=== PATIENT | male | born 1955 | race African-American/Black ===

== ENCOUNTER 2019-03-03 18:36 | Emergency (ER) | payer MEDICAID ==
[~2019-03-03] VITALS: Ht 177.8 cm; Wt 77.0 kg
[~2019-03-03 18:36] MED LIST: ABILIFY5 MG PO; AMBIEN5 MG PO; AMLODIPINE10 MG PO; AMOXICILLIN500 MG PO; BACTRIM DS1 TAB PO; BENZTROPINE0.5 MG PO; BUDEPRION150 MG PO; CIPROFLOXACN500 MG PO; CYMBALTA60 MG PO; DOXEPIN HCL10 MG PO; FINASTERIDE5 MG PO; GABAPENTIN300 MG PO; HALDOL0.5 MG/TAB PO; HALOPERIDOL1 MG PO; LISINOP/HCTZ1 TA2 PO; LISINOP/HCTZ1 TAB PO; LORTAB 1010 MG PO; MAGNESIUM250 M1 PO; MELOXICAM15 MG PO; MIRTAZAPINE15 MG PO; MUCINEX600 MG PO; OMEPRAZOLE20 M2 PO; ONDANSETRON4 MG PO; POTASSIUM GLUC550 M1 PO; PROSCAR5 MG PO; RISPERDAL0.5 MG PO; SERTRALINE HCL50 MG PO; TAMSULOSIN0.4 MG PO; TRAMADOL HCL50 MG PO; ULTRAM50 M1 PO; VIAGRA50 MG PO; WELLBUTRIN150 M1 PO; ZOFRAN4 MG/TAB PO; ZOLOFT50 MG PO
[2019-03-03 19:09] LABS: HEMATOCRIT 29.5 % (39.0-50.0); HEMOGLOBIN 9.9 g/dl (14.0-18.0); IMMATURE GRANULOCYTES 0.3 % (0.0-5.0); MEAN CELL VOLUME 92.8 fL CALC (80.0-100.0); MEAN CORPUSCULAR HGB 31.1 pG CALC (26.0-32.0); MEAN CORPUSCULAR HGB CONC 33.6 g/L CALC (32.0-36.0); NEUT# 2.22 thou/uL (1.82-7.42); RED BLOOD COUNT 3.18 mill/uL (4.70-6.10); RED CELL DISTRI WIDTH 14.2 % (11.5-15.5)
[2019-03-03 19:22] LABS: ALBUMIN 3.4 g/dL (3.2-5.0); ALKALINE PHOSPHATASE 88 u/l (38-126); ANION GAP 12 (6-22 (CALC)); BUN 15 mg/dL (8-23); BUN/CREATININE RATIO 15 (12-20 (CALC)); CARBON DIOXIDE 21 mmol/l (22-30); CHLORIDE 112 mmol/l (95-108); ETHYL ALCOHOL 21 mg/dl (0-30); GFR > 60 ML/MIN (>=60 (CALC)); GFR FOR AFR.AMER. > 60 ML/MIN (>=60 (CALC)); POTASSIUM 3.7 mmol/l (3.5-5.1); SGOT/AST 33 u/l (19-48); SODIUM 141 mmol/l (137-146); TOTAL PROTEIN 5.9 g/dL (6.3-8.2)
[2019-03-03 19:24] LABS: BILIRUBIN, TOTAL 0.2 mg/dL (0.0-1.4)
[2019-03-03 20:00] LABS: URINE BILIRUBIN - DIPSTICK NEGATIVE (NEGATIVE); URINE BLOOD DIPSTICK NEGATIVE (NEGATIVE); URINE COLOR YELLOW; URINE GLUCOSE - DIPSTICK NEGATIVE (NEGATIVE); URINE KETONE NEGATIVE (NEGATIVE); URINE LEUK ESTERASE NEGATIVE (NEGATIVE); URINE NITRITE - DIPSTICK NEGATIVE (Negative); URINE PROTEIN - DIPSTICK 30 mg/dL (NEG-TRACE); URINE SPECIFIC GRAVITY >=1.030; URINE UROBILINOGEN - DIPSTICK 0.2 E.U./dL (0.2)
[2019-03-03 20:04] LABS: COCAINE POSITIVE (NEGATIVE); METHADONE NEGATIVE (NEGATIVE); TETRAHYDROCANNABIONOL NEGATIVE (NEGATIVE); URINE RBC 0-2 RBC/hpf (0-5); URINE WBC 0-2 WBC/hpf (0-5)
[2019-03-03 20:05] LABS: BARBITURATES NEGATIVE (NEGATIVE); OXCYCODONE NEGATIVE (NEGATIVE); TRICYLIC ANTIDEPRESSANTS NEGATIVE (NEGATIVE)
[2019-03-03 20:56] VITALS: BP 122/73
== END 2019-03-03 20:56 | disposition home or self-care (01) ==
LOC: ED 18:36
PROVIDERS: Emergency Medicine
DX: G40.909 Epilepsy, unspecified, not intractable, without status epilepticus (principal); F10.10 Alcohol abuse, uncomplicated; F17.200 Nicotine dependence, unspecified, uncomplicated

== ENCOUNTER 2019-05-17 12:53 | Emergency (ER) | payer MEDICAID ==
[~2019-05-17] VITALS: Ht 177.8 cm; Wt 70.0 kg
[2019-05-17 14:00] VITALS: BP 164/77
== END 2019-05-17 14:00 | disposition home or self-care (01) ==
LOC: ED 12:53
DX: S61.011A Laceration without foreign body of right thumb without damage to nail, initial encounter (principal); I10 Essential (primary) hypertension; F17.200 Nicotine dependence, unspecified, uncomplicated; W25.XXXA Contact with sharp glass, initial encounter; Y93.E9 Activity, other interior property and clothing maintenance

== ENCOUNTER 2021-05-22 16:04 | Observation (INO) | payer MEDICARE, MEDICAID ==
[~2021-05-22] VITALS: Ht 177.8 cm; Wt 89.0 kg
--- NOTE | 2021-05-22 16:10 | NUR ---
RECIEVED FROM EMS
[2021-05-22 17:13] LABS: HEMATOCRIT 23.7 % (39.0-50.0); MEAN CORPUSCULAR HGB 31.1 pG CALC (26.0-32.0); MEAN CORPUSCULAR HGB CONC 31.2 g/dL CAL (32.0-36.0); NEUT# 2.18 thou/uL (1.82-7.42); RED BLOOD COUNT 2.38 mill/uL (4.70-6.10); RED CELL DISTRI WIDTH 13.7 % (11.5-15.5)
[2021-05-22 17:14] LABS: HEMOGLOBIN 7.4 g/dl (14.0-18.0); MEAN CELL VOLUME 99.6 fL CALC (80.0-100.0)
[2021-05-22 17:27] LABS: ALBUMIN 3.3 g/dL (3.2-5.0); ALKALINE PHOSPHATASE 74 u/l (38-126); ANION GAP 10 (6-22 (CALC)); BILIRUBIN, TOTAL 0.4 mg/dL (0.0-1.4); BUN 18 mg/dL (8-23); BUN/CREATININE RATIO 21 (12-20 (CALC)); CARBON DIOXIDE 24 mmol/l (22-30); CHLORIDE 110 mmol/l (95-108); CREATININE 0.8 mg/dL (0.7-1.3); GFR > 60 ML/MIN (>=60 (CALC)); GFR FOR AFR.AMER. > 60 ML/MIN (>=60 (CALC)); POTASSIUM 3.5 mmol/l (3.5-5.1); SGOT/AST 28 u/l (19-48); SODIUM 141 mmol/l (137-146); TOTAL PROTEIN 6.2 g/dL (6.3-8.2)
[2021-05-22 17:39] LABS: MYOGLOBIN 32 ng/mL (0 - 121)
[2021-05-22 18:34] LABS: URINE BILIRUBIN - DIPSTICK NEGATIVE (NEGATIVE); URINE BLOOD DIPSTICK NEGATIVE (NEGATIVE); URINE COLOR YELLOW; URINE GLUCOSE - DIPSTICK NEGATIVE (NEGATIVE); URINE KETONE NEGATIVE (NEGATIVE); URINE LEUK ESTERASE NEGATIVE (NEGATIVE); URINE PH 6.5 (4.5-8.0); URINE PROTEIN - DIPSTICK 100 mg/dL (NEG-TRACE); URINE SPECIFIC GRAVITY >=1.030; URINE UROBILINOGEN - DIPSTICK 0.2 E.U./dL (0.2)
[2021-05-22 18:37] LABS: URINE NITRITE - DIPSTICK NEGATIVE (Negative)
[2021-05-22 18:42] LABS: URINE RBC 0-2 RBC/hpf (0-5); URINE WBC 0-2 WBC/hpf (0-5)
--- NOTE | 2021-05-22 18:47 | NUR ---
Reassessment of patient completed. No distress noted.
--- NOTE | 2021-05-22 20:16 | NUR ---
IST ATTEMPT TO GIVE REPORT
[2021-05-22 20:50] VITALS: BP 129/98
--- NOTE | 2021-05-22 21:10 | NUR ---
Transfer Information Transferred To: [facility] Report Given to: MARCO ANTONIO COX Transported by: N [facility] N Rec. Hosp[facility] Transport Serv. N Air N Other Transported with: Y Nurse N Transporter Y Patent IV Y O2 N Morning Nanny
--- NOTE | 2021-05-22 21:45 | NUR ---
PATIENT ADMITTED FROM ER VIA WHELLCHAIR WITH ER STAFF IN ATTENDANCE. PATIENT TRANSFERRED TO THE BED. PATIENT WITH O2 VIA NASAL CANNULA IN PLACE-O2 SAT IS 99-100%. IV SITE TO LEFT FOREARM-#18 GAUGE WITH GOOD BLOOD RETURN. TELE MONITOR IN PLACE. PATIENT IS ALERT AND ORIENTED TO PERSON AND PLACE. LUNGS WITH CRACKLES IN THE BASES. PATIENT IS SOB WITH MINIMAL EXHERSION. STATES THAT HE HAD BM TODAY. NO DIFFICULTY WITH URINATION. NO PERIPHERAL EDEMA NOTED. PULSES ARE PALPABLE. PROVIDED WITH TURKEY HEALTHY CHOICE MEAL AND SODA. APPETITE IS GOOD. ORIENTED TO ROOM AND SURROUNDINGS. INSTRUCTED ON USE OF NURSE CALL LIGHT SYSTEM, TV REMOTE AND PHONE. SAFETY PRECATUIONS REINFORCED. CONSENT FOR BLOOD TRANSFUSION SIGNED. CALL LIGHT IN REACH. WILL CONT TO MONIOR.
[2021-05-22 21:59] VITALS: BP 139/102
--- NOTE | 2021-05-22 22:12 | NUR ---
PATIENT RESTING IN BED-UP TO THE BR TO VOID. BACK TO BED. 1ST UNIT OF PRBC'S HUNG AND INFUSING VIA LEFT FOREARM SITE. SITE IS HEALTHY WITH GOOD BLOOD RETURN PRIOR TO STARTING BLOOD. UNIT #[id number]. PATIENT INSTRUCTED REGUARDING POSSIBLE ADVERSE REACTIONS INCLUDING FEVER, CHILLS, HEADACHE, BACK ACHE. PATIENT INSTRUCTED TO CALL IF ANY OF THESES SX SHOULD APPEAR. PATIENT WITH O2 VIA NASAL CANNULA IN PLACE. SOB WITH EXHERSION. NON-PRODUCTIVE COUGH NOTED. PATIENT C/O FEELING CONGESTED LAST COUPLE OF DAYS. MONITORING PATIENT AT BEDSIDE.
[2021-05-22 22:26] VITALS: BP 128/82
--- NOTE | 2021-05-22 22:50 | NUR ---
PATIENT RESTING IN BED-SPOKE TO DR. NEGRITO KLINE PATIENT BNP, C-XAY AND CRACKLES IN HIS LUNGS. MEDICATED WITH LASIX 40MG IVP ORDERED. 1ST UNIT OF PRBC'S INFUSING ORDERED . URINAL AT BEDSIDE. CALL LIGHT IN REACH. WILL CONT TO MONITOR.
[2021-05-22 23:11] VITALS: BP 141/105
[2021-05-23] VITALS (11 sets, daily range): BP systolic 127–144; BP diastolic 90–108
--- NOTE | 2021-05-23 01:15 | NUR ---
PATIENT RESTING IN BED-1ST UNIT OF PRBC'S FINISHED WITHOUT ANY ADVERSE REACTION. PATIENT WITHOUT ANY COMPLAINTS. FREQUENT VOIDING AFTER RECIEVING LASIX IVP. CALL LIGHT IN REACH. WILL CONT TO MONITOR.
--- NOTE | 2021-05-23 01:59 | NUR ---
PATIENT RESTING IN BED-SECOND UNITS OF PRBC'S HUNG-UNIT#[id number] VIA LEFT FOREARM IV SITE. SITE REMAINS HEALTHY AT THIS TIME. TELE MONITOR IN PLACE. VOIDING QS IN URINAL. REINFORCED TEACHING REGUARDING POSSIBLE ADVERSE REACTIONS INCLUDING FEVER, CHILLS, HEADACHE OR BACK PAIN. MONITORING PATIENT AT BEDSIDE. WILL CONT TO MONITOR.
--- NOTE | 2021-05-23 05:00 | NUR ---
PATIENT RESTING IN BED- SECOND UNIT OF PRABC'S COMPLETED WITHOUT ANY ADVERSE REACTIONS. TELE MONITOR IN PLACE WITH LAST READING OF SR-91. CONT TO VOID CLEAR YELLOW URINE IN URINAL. CALL LIGHT IN REACH.WILL CONT TO MONITOR
--- NOTE | 2021-05-23 05:10 | NUR ---
PATIENT RESTING IN BED-2ND UNITS OF PRBC'S FINISHED WITHOUT ANY ADVERSEE REACTIONS. CONT TO VOID CLEAR YELLOW URINE. IV SITE TO RIGHT WRIST REMAINS HEALTHY AT THIS TIME. CALL LIGHT IN REACH. WILL CONT TO MONITOR.
[2021-05-23 06:26] LABS: ANION GAP 12 (6-22 (CALC)); BUN 17 mg/dL (8-23); BUN/CREATININE RATIO 17 (12-20 (CALC)); CARBON DIOXIDE 25 mmol/l (22-30); CHLORIDE 106 mmol/l (95-108); GFR > 60 ML/MIN (>=60 (CALC)); GFR FOR AFR.AMER. > 60 ML/MIN (>=60 (CALC)); POTASSIUM 4.2 mmol/l (3.5-5.1); SODIUM 138 mmol/l (137-146)
[2021-05-23 06:49] LABS: MEAN CORPUSCULAR HGB 30.4 pG CALC (26.0-32.0); MEAN CORPUSCULAR HGB CONC 32.8 g/dL CAL (32.0-36.0); RED CELL DISTRI WIDTH 14.8 % (11.5-15.5)
[2021-05-23 06:50] LABS: HEMATOCRIT 46.4 % (39.0-50.0); HEMOGLOBIN 15.2 g/dl (14.0-18.0); MEAN CELL VOLUME 92.8 fL CALC (80.0-100.0)
--- NOTE | 2021-05-23 07:00 | NUR ---
REPORT REC FROM Evie JOHNS RN
--- NOTE | 2021-05-23 07:18 | NUR ---
PT CONSENTED TO RECEIVING PNEUMONIA VACCINE. PT HAD PPSV23 08/02/2020, SO PCV13 DUE 08/03/2021... NOT A CANDIDATE AT THIS TIME.
--- NOTE | 2021-05-23 07:25 | NUR ---
PT SLEEPING UPON ENTERING ROOM. AWAKENED TO COMPLETE ASSESSMENT. A&O X4. EXERTIONAL SOB NOTED WITH ACTIVITY, PT REPORTS THE ONSET OF SYMPTOMS BEGAN APPROXIMATELY 2-3 DAYS AGO. O2 VIA NC @2L, O2 CURRENTLY 96%. CRACKLES HEARD UPON AUSCULTATION. PT DENIES ANY PAIN AT THIS TIME. QUALIFICATIONS EXAMINER IN PLACE, CURRENTLY SR WITH A RATE OF 89 BPM. #18G LFA HEALTHY AND PATENT; EMS SITE. ACTIVE BOWEL SOUNDS X4 QUADRANTS. ASSESSMENT COMPLETED. DISCUSSED POC. CALL LIGHT WITHIN REACH, PT INSTRUCTED TO CALL IF SOB WORSENS, PT VERBALIZED UNDERSTANDING.
--- NOTE | 2021-05-23 09:02 | NUR ---
DR MAHAN AND Lucero TERRELL APRN AT BEDSIDE DISCUSSING POC
--- NOTE | 2021-05-23 11:22 | NUR ---
PT SLEEPING IN BED. NO DISTRESS NOTED. CALL LIGHT WITHIN REACH.
[2021-05-23] MEDS ORDERED: LASIX 20 MG TAB20 MG PO (11:26)
--- NOTE | 2021-05-23 15:40 | NUR ---
RECIEVED REPORT FROM BROOKE GOMEZ. PT TO BE D/C. PT REQUEST TO CALL SOCIAL SECURITY BEFORE BEING DC HOME. RESPIRATIONS REMAINS EVEN AND UNLABORED ON ROOM AIR. TELE MONITORING IN PLACE. PT DENIES OF ANY ADDITIONAL NEEDS AT THIS TIME. WILL CONTINUE TO MONITOR
--- NOTE | 2021-05-23 16:40 | NUR ---
PT EDUCATED ON DC INSTRUCTIONS AND NEW MEDICATION LASIX. PT VERBALIZED UNDERSTANDING. IV AND TELE MONITORING REMOVED BY PT. #20G EMS WITH CATH INTACT ON TABLE. ER NOTIFIED. [facility] TO PAY FOR TAXI RIDE HOME. WILL CONTINUE TO MONITOR.
--- NOTE | 2021-05-23 17:45 | NUR ---
Discharge instructions given. Patient verbalizes understanding of same. Discharged in stable condition via Wheelchair to Home with staff. All belongings sent with pt. PT DC HOME IN STABLE CONDITION VIA WHEELCHAIR ACCOMPAINED BY MARJAN PUGA. PT REMINDED OF DC INTSTRUCTIONS. DR EDUARD MILAN AND JASON PROVIDED. PT DC WITH ALL DC INSTRUCTIONS AND PERSONAL BELONGING. TAXI PROVIDED BY [facility]
== END 2021-05-23 17:30 | disposition home or self-care (01) ==
LOC: ED 16:04 → MS2 19:14
PROVIDERS: Emergency Medicine; ADMIT Hospitalist; ATTEND Hospitalist
PROC: 30233N1 Transfusion of Nonautologous Red Blood Cells into Peripheral Vein, Percutaneous Approach (ICD-10-PCS; principal; 2021-05-22)
PROC: 30233N1 Transfusion of Nonautologous Red Blood Cells into Peripheral Vein, Percutaneous Approach (ICD-10-PCS; 2021-05-23)
DX: D64.9 Anemia, unspecified (principal); I11.0 Hypertensive heart disease with heart failure; I50.9 Heart failure, unspecified; F14.10 Cocaine abuse, uncomplicated; F12.10 Cannabis abuse, uncomplicated; F10.10 Alcohol abuse, uncomplicated; E78.5 Hyperlipidemia, unspecified; F41.9 Anxiety disorder, unspecified; G40.909 Epilepsy, unspecified, not intractable, without status epilepticus; F17.210 Nicotine dependence, cigarettes, uncomplicated; Z86.73 Personal history of transient ischemic attack (TIA), and cerebral infarction without residual deficits; Z20.822 Contact with and (suspected) exposure to COVID-19
CPT/HCPCS: G0378; P9016

== ENCOUNTER 2021-06-28 06:15 | Emergency (ER) | payer MEDICARE, MEDICAID ==
[~2021-06-28] VITALS: Ht 177.8 cm; Wt 72.0 kg
[~2021-06-28 06:15] MED LIST changes: +LASIX 20 MG TAB20 MG PO
[2021-06-28 06:55] LABS: HEMATOCRIT 45.1 % (39.0-50.0); HEMOGLOBIN 14.3 g/dl (14.0-18.0); IMMATURE GRANULOCYTES 0.3 % (0.0-5.0); MEAN CELL VOLUME 95.8 fL CALC (80.0-100.0); MEAN CORPUSCULAR HGB 30.4 pG CALC (26.0-32.0); MEAN CORPUSCULAR HGB CONC 31.7 g/dL CAL (32.0-36.0); NEUT# 5.01 thou/uL (1.82-7.42); RED BLOOD COUNT 4.71 mill/uL (4.70-6.10); RED CELL DISTRI WIDTH 14.4 % (11.5-15.5)
[2021-06-28 06:55] LABS: URINE BILIRUBIN - DIPSTICK NEGATIVE (NEGATIVE); URINE BLOOD DIPSTICK TRACE-INTACT (NEGATIVE); URINE COLOR YELLOW; URINE GLUCOSE - DIPSTICK NEGATIVE (NEGATIVE); URINE KETONE NEGATIVE (NEGATIVE); URINE LEUK ESTERASE NEGATIVE (NEGATIVE); URINE PROTEIN - DIPSTICK TRACE mg/dL (NEG-TRACE); URINE SPECIFIC GRAVITY 1.015; URINE UROBILINOGEN - DIPSTICK 0.2 E.U./dL (0.2)
[2021-06-28 06:59] LABS: URINE NITRITE - DIPSTICK NEGATIVE (Negative)
[2021-06-28 07:13] LABS: ALBUMIN 3.8 g/dL (3.2-5.0); ALKALINE PHOSPHATASE 111 u/l (38-126); ANION GAP 13 (6-22 (CALC)); BILIRUBIN, TOTAL 0.4 mg/dL (0.0-1.4); BUN 18 mg/dL (8-23); BUN/CREATININE RATIO 18 (12-20 (CALC)); CARBON DIOXIDE 25 mmol/l (22-30); CHLORIDE 107 mmol/l (95-108); GFR > 60 ML/MIN (>=60 (CALC)); GFR FOR AFR.AMER. > 60 ML/MIN (>=60 (CALC)); MAGNESIUM 1.6 mg/dL (1.6-2.3); POTASSIUM 4.1 mmol/l (3.5-5.1); SGOT/AST 33 u/l (19-48); SODIUM 141 mmol/l (137-146); TOTAL PROTEIN 7.3 g/dL (6.3-8.2)
[2021-06-28 07:14] LABS: D-DIMER 1.6 mg/L (0.19-0.60)
[2021-06-28 07:25] LABS: MYOGLOBIN 32 ng/mL (0 - 121)
[2021-06-28 07:50] LABS: ACT PARTIAL THROMBO TIME 23.9 SECONDS (20.0-32.5); PROTHROMBIN TIME 10.4 SECONDS (9.0-12.5)
[2021-06-28 09:34] VITALS: BP 134/94
[2021-06-28] MEDS ORDERED: ZPAK PO (09:38)
== END 2021-06-28 09:36 | disposition home or self-care (01) ==
LOC: ED 06:15
PROVIDERS: Family Medicine
DX: I50.9 Heart failure, unspecified (principal); F14.10 Cocaine abuse, uncomplicated; Z86.73 Personal history of transient ischemic attack (TIA), and cerebral infarction without residual deficits; Z87.891 Personal history of nicotine dependence; Z20.822 Contact with and (suspected) exposure to COVID-19
CPT/HCPCS: Q9967

== ENCOUNTER 2021-08-21 09:30 | Observation (INO) | payer MEDICARE, MEDICAID ==
[~2021-08-21] VITALS: Ht 177.8 cm; Wt 64.5 kg
[~2021-08-21 09:30] MED LIST changes: +ZPAK PO
--- NOTE | 2021-08-21 09:30 | NUR ---
PATIENT TO ROOM VIA EMS AND PHYSICIAN AT BEDSIDE FOR EVAL
[2021-08-21 10:05] LABS: GFR > 60 ML/MIN (>=60 (CALC)); GFR FOR AFR.AMER. > 60 ML/MIN (>=60 (CALC))
[2021-08-21 10:12] LABS: HEMATOCRIT 42.4 % (39.0-50.0); HEMOGLOBIN 14.2 g/dl (14.0-18.0); IMMATURE GRANULOCYTES 0.3 % (0.0-5.0); MEAN CELL VOLUME 92.4 fL CALC (80.0-100.0); MEAN CORPUSCULAR HGB 30.9 pG CALC (26.0-32.0); MEAN CORPUSCULAR HGB CONC 33.5 g/dL CAL (32.0-36.0); NEUT# 4.25 thou/uL (1.82-7.42); RED BLOOD COUNT 4.59 mill/uL (4.70-6.10); RED CELL DISTRI WIDTH 14.6 % (11.5-15.5)
[2021-08-21 10:25] LABS: URINE BILIRUBIN - DIPSTICK NEGATIVE (NEGATIVE); URINE BLOOD DIPSTICK TRACE-INTACT (NEGATIVE); URINE COLOR YELLOW; URINE GLUCOSE - DIPSTICK NEGATIVE (NEGATIVE); URINE KETONE NEGATIVE (NEGATIVE); URINE LEUK ESTERASE NEGATIVE (NEGATIVE); URINE PROTEIN - DIPSTICK 100 mg/dL (NEG-TRACE); URINE UROBILINOGEN - DIPSTICK 0.2 E.U./dL (0.2)
[2021-08-21 10:26] LABS: URINE EPITHELIAL CELLS FEW EPI/hpf (0-FEW); URINE MUCUS MODERATE hpf (NONE-FEW); URINE NITRITE - DIPSTICK NEGATIVE (Negative); URINE RBC 0-2 RBC/hpf (0-5)
--- NOTE | 2021-08-21 10:30 | NUR ---
PT SITTING UP IN BED. RA SATS 94%.
[2021-08-21 10:37] LABS: ALBUMIN 3.8 g/dL (3.2-5.0); ALKALINE PHOSPHATASE 93 u/l (38-126); ANION GAP 14 (6-22 (CALC)); BUN 19 mg/dL (8-23); BUN/CREATININE RATIO 22 (12-20 (CALC)); CARBON DIOXIDE 23 mmol/l (22-30); CHLORIDE 107 mmol/l (95-108); CREATININE 0.9 mg/dL (0.7-1.3); GFR > 60 ML/MIN (>=60 (CALC)); GFR FOR AFR.AMER. > 60 ML/MIN (>=60 (CALC)); POTASSIUM 4.5 mmol/l (3.5-5.1); SGOT/AST 33 u/l (19-48); SODIUM 140 mmol/l (137-146); TOTAL PROTEIN 7.2 g/dL (6.3-8.2)
--- NOTE | 2021-08-21 11:45 | NUR ---
MD AT BEDSIDE DISCUSSING CLINICAL RESULTS W/PT AND NEED TO ADMIT FOR OBSERVATIONS. PT VOICED UNDERSTANDING.
[2021-08-21] MEDS ORDERED: VITAMIN B-12500 MCG PO (12:47)
[2021-08-21] MEDS ORDERED: NORVASC PO (12:47)
[2021-08-21] MEDS ORDERED: HM VITAMIN D325 MCG PO (12:47)
[2021-08-21] MEDS ORDERED: K-TABS10 MEQ PO (12:48)
--- NOTE | 2021-08-21 13:00 | NUR ---
MEAL TRAY PROVIDED. PT ATE 100% FEEDS SELF.
--- NOTE | 2021-08-21 14:13 | NUR ---
REPORT CALLED TO BROOKE HAWTHORNE, ON [employer]. ADVISED OF ALL EVENTS ATTACHMENTS TEST.
--- NOTE | 2021-08-21 14:26 | NUR ---
PT TO MEDSURG VIA WC ON TELE, IV SITE HEALTHY. VSS.
--- NOTE | 2021-08-21 14:40 | NUR ---
REPORT RECEIVED FROM CANDICE IN ED, PT ARRIVED ON UNIT APPROX [phone] TRANSPORTED BY ED STAFF. SETTLED IN BED, ALERT AND ORIENTED X 3, HAVING EPISODES OF HACKING NON-PRODUCTIVE COUGH AT THIS TIME, HYPERVENTILATING, SOB WITH AND WITHOUT EXERTION. REPORTS HIS DIURETIC (LASI) HAS BEEN FINISHED FOR A FEW DAYS NOW AND HE HASNT TAKEN ANY FOR THE LAST 3 DAYS, C/O LEFT SIDE PAIN ON COUGHING. USES CANE BUT AMBULATED TO BR INDEPENDENTLY, ADVISED TO CALL FOR ASSIST NEEDED HE IS VERY SOB. ORIENTED TO ROOM AND CALL CORTEZ, WILL CONTINUE TO MONITOR.
[2021-08-21 16:23] VITALS: BP 131/94
--- NOTE | 2021-08-21 17:43 | NUR ---
CONDITION MUCH IMPROVED AT THIS TIME, BREATHING EVEN AND NON-LABORED, SITTING UP AT BEDSIDE HAVING MEAL.
[2021-08-21 20:00] VITALS: BP 123/80
--- NOTE | 2021-08-21 20:00 | NUR ---
PATIENT RESTING IN BED AT THIS TIME-AWAKE ALERT AND ORIENTEDX3. PATIENT WITH TELE MONITOR IN PLACE-LAST READING WAS SR-83 WITH PAC'S. SALINE LOCK TO LAC INTACT AND HEALTHY AT THIS TIME. PATIENT VOIDING QS CLEAR YELLOW URINE IN URINAL. INSTRUCTED TO USE URINAL FOR ACCURATE I&O. VERBALIZES UNDERSTANDING. PATIENT C/O BACK PAIN-04/17, STATES THATHE FELL LAST WEEK. MEDICATED WITH TYLENOL 650MG PO FOR PAIN. SAFETY PRECAUTIONS REINFORCED. CALL LIGHT IN REACH. WILL CONT TO MONITOR.
[2021-08-22] VITALS: BP 109/76
--- NOTE | 2021-08-22 | NUR ---
PATIENT RESTING IN BED POSITIONED ON LEFT SIDE. EYES CLOSED AND RESPS ARE EVEN AND UNLABORED. TELE MONITOR IN PLACE. CALL LIGHT IN REACH. WILL CONT TO MONITOR.
[2021-08-22 04:00] VITALS: BP 113/81
--- NOTE | 2021-08-22 04:26 | NUR ---
PATIENT APPEARS SLEEPING AT THIS TIME-EYES ARE CLOSED AND RESPS ARE EVEN AND UNLABORED. TELE MONITOR IN PLACE. CALL LIGHT IN REACH. WILL CONT TO MONITOR.
[2021-08-22 06:03] LABS: HEMATOCRIT 39.4 % (39.0-50.0); HEMOGLOBIN 13.3 g/dl (14.0-18.0); MEAN CELL VOLUME 91.4 fL CALC (80.0-100.0); MEAN CORPUSCULAR HGB 30.9 pG CALC (26.0-32.0); MEAN CORPUSCULAR HGB CONC 33.8 g/dL CAL (32.0-36.0); RED BLOOD COUNT 4.31 mill/uL (4.70-6.10); RED CELL DISTRI WIDTH 14.6 % (11.5-15.5)
[2021-08-22 06:22] LABS: ANION GAP 11 (6-22 (CALC)); BUN 18 mg/dL (8-23); BUN/CREATININE RATIO 20 (12-20 (CALC)); CALCULATED LDLCHOLESTEROL 127 mg/dL (62-129 (CALC)); CARBON DIOXIDE 27 mmol/l (22-30); CHLORIDE 104 mmol/l (95-108); CREATININE 0.9 mg/dL (0.7-1.3); GFR > 60 ML/MIN (>=60 (CALC)); GFR FOR AFR.AMER. > 60 ML/MIN (>=60 (CALC)); HDL CHOLESTEROL 36 mg/dL (>=40); MAGNESIUM 1.7 mg/dL (1.6-2.3); POTASSIUM 3.6 mmol/l (3.5-5.1); SODIUM 139 mmol/l (137-146); TOTAL CHOLESTEROL 181 mg/dl (0-199); TOTAL TRIGLYCERIDES 89 mg/dl (30-149); VLDL CHOLESTROL 18 mg/dl (4-45 (CALC))
--- NOTE | 2021-08-22 07:00 | NUR ---
RECIEVED REPORT FROM BROOKE BERNARD
[2021-08-22 08:08] VITALS: BP 114/83
--- NOTE | 2021-08-22 08:08 | NUR ---
PT RESTING IN SEMI FOWLERS POSITION. PT IS A/O X3. ASSESSMENT AND VITALS COMPLETED. BP 114/83, HR 89, O2 100% ON 2L NC. RESPIRATIONS AER EVEN AND UNLABORED WITH NO DISTRESS NOTED. LUNG SOUNDS ARE CLEAR. HEART RHYTHM NORMAL WITH TELE IN PLACE. BOWEL SOUNDS ARE ACTIVE. #18G LAC FLUSHED, SITE REMAINS HEALTHY AND PATENT. SKIN INTACT. PT COMPLAINS OF 8/10 BACK PAIN. PT TO BE MEDICATED WITH TYLENOL. PT DENIES OF ANY ADDITIONAL PAINS OR DISCOMFORTS. ALL SAFETY PRECAUTIONS ARE IN PLACE WITH CALL LIGHT IN REACH. WILL CONTINUE TO MONITOR.
--- NOTE | 2021-08-22 09:09 | NUR ---
DR CHARLTON AT BEDSIDE
--- NOTE | 2021-08-22 09:14 | NUR ---
DR CHARLTON AT BEDSIDE
--- NOTE | 2021-08-22 09:37 | NUR ---
WALK TEST COMPLETED. 99% ON RESTING ON ROOM AIR. 97-99% WHILE AMBULATING. RESPIRATIONS REMAINS EVEN AND UNLABORED. PT CONTINUES TO STATE HE FEELS SOB. PT EDUCATED ON BREATHING TECHNIQUES. O2 98% ON ROOM AIR WHILE RESTING.
[2021-08-22 10:46] VITALS: BP 110/80
[2021-08-22] MEDS ORDERED: VENTOLIN HFA108 MCG IN (11:08)
[2021-08-22] MEDS ORDERED: ZYRTEC10 MG PO (11:09)
[2021-08-22] MEDS ORDERED: MEDDOSEPAK PO (11:09)
[2021-08-22] MEDS ORDERED: FLONASE AL50 MCG/ACT (11:10)
[2021-08-22] MEDS ORDERED: NORVASC PO (11:13)
[2021-08-22] MEDS ORDERED: HM VITAMIN D325 MCG PO (11:13)
[2021-08-22] MEDS ORDERED: LASIX 20 MG TAB20 MG PO (11:13)
[2021-08-22] MEDS ORDERED: VITAMIN B-12500 MCG PO (11:13)
[2021-08-22] MEDS ORDERED: K-TABS10 MEQ PO (11:13)
--- NOTE | 2021-08-22 12:08 | NUR ---
PT RESTING IN SEMI FOWLERS POSITION. RESPIRATIONS ARE EVEN AND UNLABORED ON ROOM AIR. #18G LAC REMAINS IN PLACE. TELE MONITORING IN PLACE. PT INFORMED OF DC. PT DENIES OF ANY ADDITONAL NEEDS AT THIS TIME. ALL SAFETY PRECAUTIONS ARE IN PLACE WITH CALL LIGHT IN REACH. WILL CONTINUE TO MONITOR
--- NOTE | 2021-08-22 13:16 | NUR ---
PT EDUCATED ON DC INSTRUCTIONS AND NEW MEDICATIONS. IV REMOVED WITH CATH STILL INTACT. TELLE REMOVED, ER INFORMED. PT VERBALZIED UNDERSTANDING. TAXI TO BE CALLED.
--- NOTE | 2021-08-22 13:43 | NUR ---
Discharge instructions given. Patient verbalizes understanding of same. Discharged in stable condition via Wheelchair to Home with staff. All belongings sent with pt. PT DC HOME VIA TAXI PROVIDED BY [facility] IN STABLE CONDITON WITH ALL DC INSTRUCTIONS AND PERSONAL BELONGINGS.
== END 2021-08-22 13:43 | disposition home or self-care (01) ==
LOC: ED 09:30 → ED-I 11:27 → ED 11:40 → MS2 11:41
PROVIDERS: Family Medicine; Nurse Practitioner; ADMIT Internal Medicine; ATTEND Internal Medicine
DX: I11.0 Hypertensive heart disease with heart failure (principal); I50.9 Heart failure, unspecified; J06.9 Acute upper respiratory infection, unspecified; F14.10 Cocaine abuse, uncomplicated; F10.10 Alcohol abuse, uncomplicated; E78.5 Hyperlipidemia, unspecified; E87.2 Acidosis; F41.9 Anxiety disorder, unspecified; T50.1X6A Underdosing of loop [high-ceiling] diuretics, initial encounter; F17.200 Nicotine dependence, unspecified, uncomplicated; Z86.73 Personal history of transient ischemic attack (TIA), and cerebral infarction without residual deficits; Z91.128 Patient's intentional underdosing of medication regimen for other reason; Z20.822 Contact with and (suspected) exposure to COVID-19
CPT/HCPCS: J1650; Q9967

== ENCOUNTER 2021-09-01 07:06 | Observation (INO) | payer MEDICARE, MEDICAID ==
[~2021-09-01] VITALS: Ht 177.8 cm; Wt 74.0 kg
[~2021-09-01 07:06] MED LIST changes: +FLONASE AL50 MCG/ACT; +HM VITAMIN D325 MCG PO; +K-TABS10 MEQ PO; +MEDDOSEPAK PO; +NORVASC PO; +VENTOLIN HFA108 MCG IN; +VITAMIN B-12500 MCG PO; +ZYRTEC10 MG PO
--- NOTE | 2021-09-01 07:12 | NUR ---
PATIENT TO ROOM VIA EMS
--- NOTE | 2021-09-01 07:44 | NUR ---
PT SATS 100 2L/M VIA NC.
[2021-09-01 07:56] LABS: HEMATOCRIT 41.5 % (39.0-50.0); HEMOGLOBIN 13.2 g/dl (14.0-18.0); IMMATURE GRANULOCYTES 0.2 % (0.0-5.0); MEAN CORPUSCULAR HGB 30.8 pG CALC (26.0-32.0); MEAN CORPUSCULAR HGB CONC 31.8 g/dL CAL (32.0-36.0); NEUT# 4.57 thou/uL (1.82-7.42); RED BLOOD COUNT 4.28 mill/uL (4.70-6.10); RED CELL DISTRI WIDTH 14.8 % (11.5-15.5)
[2021-09-01 08:10] LABS: GFR > 60 ML/MIN (>=60 (CALC)); GFR FOR AFR.AMER. > 60 ML/MIN (>=60 (CALC))
--- NOTE | 2021-09-01 08:15 | NUR ---
PATIENT C/O REPRODUCABLE LEFT SIDED CHEST PAIN, 03/17 STARTING ABOUT 5 MINS AGO. REPEAT EKG COMPLETED AND DR ERIC AWARE.
[2021-09-01 08:16] LABS: ALBUMIN 3.7 g/dL (3.2-5.0); ALKALINE PHOSPHATASE 95 u/l (38-126); ANION GAP 11 (6-22 (CALC)); BUN 16 mg/dL (8-23); BUN/CREATININE RATIO 18 (12-20 (CALC)); CARBON DIOXIDE 23 mmol/l (22-30); CHLORIDE 111 mmol/l (95-108); CREATININE 0.9 mg/dL (0.7-1.3); GFR > 60 ML/MIN (>=60 (CALC)); GFR FOR AFR.AMER. > 60 ML/MIN (>=60 (CALC)); LIPASE 38 u/l (23-300); POTASSIUM 3.9 mmol/l (3.5-5.1); SGOT/AST 28 u/l (19-48); SODIUM 141 mmol/l (137-146); TOTAL PROTEIN 6.9 g/dL (6.3-8.2)
[2021-09-01 08:18] LABS: BILIRUBIN, TOTAL 0.4 mg/dL (0.0-1.4)
--- NOTE | 2021-09-01 09:45 | NUR ---
PT RETURNED FROM CT. IV INFILTRATE SITE AT LAC SWOLLEN. DENIES PAIN. WARM COMPRESS APPLIED. AWARE.
--- NOTE | 2021-09-01 10:05 | NUR ---
PT RETURNED FROM CT IN STABLE CONDITION. IV SITE TO RAC HEALTHY. IV ABT STARTED. VSS. SATS 100% RA.
--- NOTE | 2021-09-01 10:20 | NUR ---
MD AT BEDSIDE DISCUSSED CLINICAL RESULTS ADVISED PT OF NEED TO ADMIT PT VOICED UNDERSTANDING.
--- NOTE | 2021-09-01 10:21 | NUR ---
PT VOIDED APPROX 900 ML CLEAR URINE IN URINAL
[2021-09-01 10:30] LABS: URINE BILIRUBIN - DIPSTICK NEGATIVE (NEGATIVE); URINE BLOOD DIPSTICK NEGATIVE (NEGATIVE); URINE COLOR YELLOW; URINE GLUCOSE - DIPSTICK NEGATIVE (NEGATIVE); URINE KETONE NEGATIVE (NEGATIVE); URINE LEUK ESTERASE NEGATIVE (NEGATIVE); URINE UROBILINOGEN - DIPSTICK 0.2 E.U./dL (0.2)
[2021-09-01 10:31] LABS: URINE NITRITE - DIPSTICK NEGATIVE (Negative); URINE PROTEIN - DIPSTICK NEGATIVE (NEG-TRACE)
--- NOTE | 2021-09-01 11:25 | NUR ---
PT MEDICATED FOR VOMITING X1 VIA IV.
--- NOTE | 2021-09-01 12:22 | NUR ---
REPORT RECIEVED FROM ISAURA.
--- NOTE | 2021-09-01 12:30 | NUR ---
PT TO MEDSURG VIA AFTER PROVIDING REPORT TO MARVIN NURSE, ON MEDSURG. IV SITE HEALTHY. TELE IN PLACE. WARM COMPRESS CONTINUES TO LAC AREA FOR IV INFILTRATE DURING IV CONTRAST PUSH IN CT. PT ON 2L/M VIA IA SUPPORTIVE O2.
--- NOTE | 2021-09-01 12:50 | NUR ---
PT ARRIVED VIA WC WITH BROOKE DELAROSA. ORIENTATED PT TO ROOM, REPORTS NO PAIN AT THIS TIME. CALL LIGHT WITHIN REACH.
[2021-09-01 13:40] VITALS: BP 109/82
--- NOTE | 2021-09-01 16:00 | NUR ---
PT RESTING IN BED WATCHING TV. REPORTS LICENSED MORTGAGE LOAN OFFICER PAIN AT THIS TIME. CALL LIGHT WITHIN REACH.
[2021-09-01 16:40] VITALS: BP 93/70
[2021-09-01 17:35] VITALS: BP 118/80
[2021-09-01 19:00] VITALS: BP 120/60
--- NOTE | 2021-09-01 19:15 | NUR ---
REPORT RECEIVED FROM Nicole GREY RN
--- NOTE | 2021-09-01 20:04 | NUR ---
CONFIRMED TELEL NUMBER [id number] WITH ANAI BARGER
--- NOTE | 2021-09-01 21:00 | NUR ---
PATIENT ALERT AND ORIENTED X3. CURRENTLY ON 2L VIA NASAL CANNULA SATING 97%. NO CURRENT COMPLAINTS OF PAIN, PATIENT REQUESTING HOME MEDICATIONS, CALL PLACED TO DR MAHAN, ORDER TO FOLLOW. EPIRATORY WHEEZES THROUGHOUT BASES. PT ON TELEMETRY RUNNING SR (3722). PLAN OF CARE REVIEWED, CALL LIGHT AND BEDSDIE TABLE WITHIN REACG.
[2021-09-02] VITALS: BP 116/78
--- NOTE | 2021-09-02 00:30 | NUR ---
PATIENT SLEEPING SOUNDLY, AWOKEN BY WRITTER, DENIES ANY CURRENT NEEDS. CALL LIGHT AND BEDSIDE TABLE WTIHIN REACH.
[2021-09-02 04:00] VITALS: BP 115/90
[2021-09-02 04:52] LABS: HEMOGLOBIN 12.6 g/dl (14.0-18.0); MEAN CELL VOLUME 94.9 fL CALC (80.0-100.0); MEAN CORPUSCULAR HGB 30.7 pG CALC (26.0-32.0); MEAN CORPUSCULAR HGB CONC 32.3 g/dL CAL (32.0-36.0); RED BLOOD COUNT 4.11 mill/uL (4.70-6.10); RED CELL DISTRI WIDTH 14.6 % (11.5-15.5)
[2021-09-02 05:10] LABS: ANION GAP 11 (6-22 (CALC)); BUN 18 mg/dL (8-23); BUN/CREATININE RATIO 20 (12-20 (CALC)); CARBON DIOXIDE 24 mmol/l (22-30); CHLORIDE 107 mmol/l (95-108); CREATININE 0.9 mg/dL (0.7-1.3); GFR > 60 ML/MIN (>=60 (CALC)); GFR FOR AFR.AMER. > 60 ML/MIN (>=60 (CALC)); MAGNESIUM 1.5 mg/dL (1.6-2.3); POTASSIUM 4.2 mmol/l (3.5-5.1); SODIUM 138 mmol/l (137-146)
--- NOTE | 2021-09-02 06:36 | NUR ---
PT COMPLAINING OF CHEST PAIN, STATES IT ORIGINATED ABOUT 30 MIN AGO, PER ED PT IS RUNNING SR 80'S WITH PVCS. EKG AND STAT TROPONIN ORDERED.
--- NOTE | 2021-09-02 07:25 | NUR ---
CHARLEEN MAHAN IN REGARDS TO PTS NEW EKG RESULTS AND TROPONIN RESULTS, NO NEW ORDERS RECIEVED.
[2021-09-02 07:40] VITALS: BP 105/81
--- NOTE | 2021-09-02 07:51 | NUR ---
PT AWAKE IN BED COMPLAINING OF CHEST PAIN EVERYTIME HE MOVES. EKG WAS ORDERED, TROPONINS WELL RESULTS BEING 0.039. MD MAHAN ALREADY NOTIFIED. VITALS AND ASESSMENTS DONE AT THIS TIME. LUNG SOUNDS CLEAR UPPER/LOWER LOBES. PT BREATHING SHALLOW. O2 @ 3L NC. HEART SOUNDS ARE REGULAR. TELE MONITOR IN PLACE, CONTINOUS MONITORING BY ED. BOWEL SOUNDS ACTIVE X4. PT DENIES BED SIDE COMMODE. FALL PRECAUTIONS ARE IN PLACE. PT REPORTS NO PAIN AT THIS TIME. CALL LIGHT AND PERSONAL ITEMS ARE WITHIN REACH.
[2021-09-02 11:28] VITALS: BP 100/81
--- NOTE | 2021-09-02 12:00 | NUR ---
PT EATING LUNCH AT THIS TIME. STATES NOT FEELING OF ANY PAIN AT THIS TIME. TELE MONITOR IN PLACE. IV PATENT. CALL LIGHT WITHIN REACH
--- NOTE | 2021-09-02 12:42 | NUR ---
PT LEFT TO CHEST XRAY VIA WC IN STABLE CONDITION WITH O2 @3L NC WITH MARJAN JOSEPH
--- NOTE | 2021-09-02 12:45 | NUR ---
PT BACK FROM CHEST XRAY VIA WC WITH POLE PEELING MACHINE OPERATOR HELPER JAKE, O2 IN PLACE AT 3L NC.
--- NOTE | 2021-09-02 16:00 | NUR ---
PT ASLEEP IN BED STATES NO PAIN AT THIS TIME. TELE MONITOR IN PLACE. O2 AT 3L NC. IV PATENT. STATES NO OTHER NEEDS AT THIS TIME. CALL LIGHT WITHIN REACH
[2021-09-02 16:11] VITALS: BP 130/84
--- NOTE | 2021-09-02 18:45 | NUR ---
REPORT RECEIVED FROM Nicole DOCKERY RN.
[2021-09-02 19:03] VITALS: BP 130/83
--- NOTE | 2021-09-02 20:15 | NUR ---
PATIENT ALERT AND ORIENTED X3. CURRENTLY ON 3L VIA NASAL CANNULA SATING 95%. EXPIRATORY WHEEZES THROUGHOUT BASES. PT REPORTS FEELING A LOT BETTER TODAY. PT ON TELEMETRY RUNNING SR (2052). PLAN OF CARE REVIEWED, CALL LIGHT AND BEDSDIE TABLE WITHIN REACG.
[2021-09-03 00:22] VITALS: BP 130/86
[2021-09-03 04:32] VITALS: BP 124/91
[2021-09-03 05:48] LABS: HEMATOCRIT 40.2 % (39.0-50.0); HEMOGLOBIN 13.3 g/dl (14.0-18.0); MEAN CELL VOLUME 95.5 fL CALC (80.0-100.0); MEAN CORPUSCULAR HGB 31.6 pG CALC (26.0-32.0); MEAN CORPUSCULAR HGB CONC 33.1 g/dL CAL (32.0-36.0); RED BLOOD COUNT 4.21 mill/uL (4.70-6.10); RED CELL DISTRI WIDTH 14.4 % (11.5-15.5)
[2021-09-03 06:10] LABS: ANION GAP 11 (6-22 (CALC)); BUN 22 mg/dL (8-23); BUN/CREATININE RATIO 24 (12-20 (CALC)); CHLORIDE 103 mmol/l (95-108); CREATININE 0.9 mg/dL (0.7-1.3); GFR > 60 ML/MIN (>=60 (CALC)); GFR FOR AFR.AMER. > 60 ML/MIN (>=60 (CALC)); MAGNESIUM 1.4 mg/dL (1.6-2.3); SODIUM 139 mmol/l (137-146)
[2021-09-03 06:20] LABS: CARBON DIOXIDE 29 mmol/l (22-30)
[2021-09-03 08:13] VITALS: BP 117/93
--- NOTE | 2021-09-03 08:13 | NUR ---
ENTERING PATIENT ROOM PATIENT IS HAVING SOB AND HE HAS HIS O2 OFF. APPLIED THE O2 AT 3L VIA NC. ASSESSMENT DONE. PATIENT IS ALERT AND ORIENT X3. PATIENT DENIES PAIN. LUNGS SOUND DIMINISHED/WHEEZES. PATIENT SATS AT 98% O2 AT 3L VIA NC. TELE IN PLACE. PATIENT DENIES ANY OTHER NEEDS. SAFETY PRECAUTIONS REINFORCED AND CALL LIGHT IN REACH.
[2021-09-03 10:59] VITALS: BP 125/89
--- NOTE | 2021-09-03 12:15 | NUR ---
PATIENT IS EATING HIS LUNCH AND DENIES NEEDS AT THIS TIME. CALL LIGHT IN REACH.
--- NOTE | 2021-09-03 14:50 | NUR ---
Discharge instructions given. Patient verbalizes understanding of same. Discharged in stable condition via Wheelchair to Home with volunteer. All belongings sent with pt.
== END 2021-09-03 14:50 | disposition home or self-care (01) ==
LOC: ED 07:06 → ED-I 07:21 → ED 07:21 → ED-I 09:30 → ED 10:25 → MS2 10:26
PROVIDERS: Family Medicine; ADMIT Hospitalist; ATTEND Hospitalist
PROC: 3E02340 Introduction of Influenza Vaccine into Muscle, Percutaneous Approach (ICD-10-PCS; principal; 2021-09-03)
PROC: 3E0234Z Introduction of Serum, Toxoid and Vaccine into Muscle, Percutaneous Approach (ICD-10-PCS; 2021-09-03)
DX: I11.0 Hypertensive heart disease with heart failure (principal); I50.9 Heart failure, unspecified; R11.2 Nausea with vomiting, unspecified; R10.13 Epigastric pain; E87.2 Acidosis; E78.5 Hyperlipidemia, unspecified; F14.10 Cocaine abuse, uncomplicated; F10.10 Alcohol abuse, uncomplicated; F41.9 Anxiety disorder, unspecified; F17.200 Nicotine dependence, unspecified, uncomplicated; Z23 Encounter for immunization; Z86.73 Personal history of transient ischemic attack (TIA), and cerebral infarction without residual deficits; Z20.822 Contact with and (suspected) exposure to COVID-19
CPT/HCPCS: G0378; J2060; Q9967

== ENCOUNTER 2021-09-18 05:20 | Observation (INO) | payer MEDICARE, MEDICAID ==
[~2021-09-18] VITALS: Ht 177.8 cm; Wt 66.0 kg
--- NOTE | 2021-09-18 05:21 | NUR ---
BY EMS TO ROOM.
--- NOTE | 2021-09-18 07:00 | NUR ---
REPORT FROM ROBERT COX, PT ALERT AND IN NO DSITRESS
--- NOTE | 2021-09-18 07:40 | NUR ---
PT RESTING SUPINE WITH HOB ELEVATED. ON O2 @2LPM VIA NC. NO DISTRESS NTOED
[2021-09-18 08:25] LABS: HEMATOCRIT 40.6 % (39.0-50.0); HEMOGLOBIN 13.5 g/dl (14.0-18.0); IMMATURE GRANULOCYTES 0.5 % (0.0-5.0); MEAN CELL VOLUME 93.8 fL CALC (80.0-100.0); MEAN CORPUSCULAR HGB 31.2 pG CALC (26.0-32.0); MEAN CORPUSCULAR HGB CONC 33.3 g/dL CAL (32.0-36.0); NEUT# 4.39 thou/uL (1.82-7.42); RED BLOOD COUNT 4.33 mill/uL (4.70-6.10); RED CELL DISTRI WIDTH 15.1 % (11.5-15.5)
--- NOTE | 2021-09-18 08:45 | NUR ---
PT IN NO DISTRESS, CONTINUES O2 @2LPM VIA NC. PT BECOMES TACHPNEIC WITH MOVEMENT BUT MAINTAINS SAT AT 97% ON O2@2LPM
[2021-09-18 08:48] LABS: ALKALINE PHOSPHATASE 89 u/l (38-126); ANION GAP 7 (6-22 (CALC)); BILIRUBIN, TOTAL 0.9 mg/dL (0.0-1.4); BUN 15 mg/dL (8-23); BUN/CREATININE RATIO 20 (12-20 (CALC)); CARBON DIOXIDE 25 mmol/l (22-30); CHLORIDE 110 mmol/l (95-108); CREATININE 0.8 mg/dL (0.7-1.3); GFR > 60 ML/MIN (>=60 (CALC)); GFR FOR AFR.AMER. > 60 ML/MIN (>=60 (CALC)); MAGNESIUM 1.6 mg/dL (1.6-2.3); POTASSIUM 3.7 mmol/l (3.5-5.1); SGOT/AST 39 u/l (19-48); SODIUM 138 mmol/l (137-146); TOTAL PROTEIN 6.2 g/dL (6.3-8.2)
--- NOTE | 2021-09-18 09:40 | NUR ---
MEDICATED WITH IV LASIX, PT BECOMES TACHYPNEIC WITH MOVEMENT BUT MAINTAINS SAT 98% ON O2@2LPM VIA NC. UPDATED ON ADMIT AND AGREEABLE. UP TO STAND AT BEDSIDE FOR URINE
--- NOTE | 2021-09-18 10:26 | NUR ---
REPORT CALLED TO CARMELINA IN ICU
--- NOTE | 2021-09-18 10:40 | NUR ---
TRANSPORTED TO ICU ON MONITOR WITH O2 @2LPM VIA NC. PT IN NO DISTRESS, ALERT AND CONVERSIVE
--- NOTE | 2021-09-18 11:02 | NUR ---
ARRIVED FROM ER TO ICU 3. ALERT AND ORIENTED X4. NO C/O PAIN VOICED. AMBULTES INDEPENDENTLY. EXTREME SOB WITH EXCERTION NOTED.
[2021-09-18 12:00] VITALS: BP 111/84
--- NOTE | 2021-09-18 13:34 | NUR ---
O2 DECREASED TO 2L/MIN FROM 3L/MIN.
[2021-09-18 14:00] VITALS: BP 112/85
[2021-09-18 15:00] VITALS: BP 120/86
--- NOTE | 2021-09-18 15:47 | NUR ---
RESTING IN BED AWAKE NO S/S OF DISTRESS NOTED.
--- NOTE | 2021-09-18 18:23 | NUR ---
EXTENSION TUBING FOR NC ADDED TO ALLOW PT TO BE ABLE TO AMBULATE FROM BED TO RESTROOM WITH 02.
[2021-09-18 20:00] VITALS: BP 97/76
--- NOTE | 2021-09-18 20:00 | NUR ---
PATIENT RESTING IN BED WITH EYES CLSOED. RESP NON-LABORED. O2 ON AT 3 L NC. O2 SAT 94% BREATH SOUNDS SLIGHTLY DIMINISHED BUT CLEAR THROUGHOUT. NO PERIPHERAL EDEMA, PULSES INTACT. SALINE LOCK IN PLACE IN LAC, SITE BENIGN. FRESH FOODS CAKE DECORATOR SHOWS SR WITH PVC'S. DISCUSSED PLAN OF CARE. DENIES NEEDS AT THIS TIME. CALL CORTEZ IN REACH.
[2021-09-18 22:00] VITALS: BP 106/78
--- NOTE | 2021-09-18 22:00 | NUR ---
RESTING IN BED WITH EYES CLOSED. RESP NON-LABORED. VSS.
[2021-09-19] VITALS (15 sets, daily range): BP systolic 75–131; BP diastolic 57–94
--- NOTE | 2021-09-19 00:10 | NUR ---
RESTING WITHOUT COMPLAINTS. VSS. RESP NON-LABORED.
--- NOTE | 2021-09-19 04:00 | NUR ---
STUDENT SPECIALIST IN FOR AM LAB DRAW. APTIENT RESTING WITHOUT ANY COMPLAINTS. VSS. RESP NON-LABORED. O2 SAT 100% ON 3 L NC. O2 DECREASED TO 2 L.
[2021-09-19 06:39] LABS: HEMATOCRIT 40.6 % (39.0-50.0); HEMOGLOBIN 13.4 g/dl (14.0-18.0); MEAN CELL VOLUME 94.4 fL CALC (80.0-100.0); MEAN CORPUSCULAR HGB 31.2 pG CALC (26.0-32.0); RED BLOOD COUNT 4.3 mill/uL (4.70-6.10); RED CELL DISTRI WIDTH 14.9 % (11.5-15.5)
[2021-09-19 06:55] LABS: ANION GAP 10 (6-22 (CALC)); BUN 19 mg/dL (8-23); BUN/CREATININE RATIO 21 (12-20 (CALC)); CARBON DIOXIDE 26 mmol/l (22-30); CHLORIDE 105 mmol/l (95-108); CREATININE 0.9 mg/dL (0.7-1.3); GFR > 60 ML/MIN (>=60 (CALC)); GFR FOR AFR.AMER. > 60 ML/MIN (>=60 (CALC)); MAGNESIUM 1.4 mg/dL (1.6-2.3); POTASSIUM 3.6 mmol/l (3.5-5.1); SODIUM 139 mmol/l (137-146)
--- NOTE | 2021-09-19 07:05 | NUR ---
RECEIVED REPORT FROM OFF GOING NURSE.
--- NOTE | 2021-09-19 08:12 | NUR ---
DR CHARLTON IN ROUNDING ON PT.
--- NOTE | 2021-09-19 09:48 | NUR ---
DR CHAPA's EDITOR NEWSPAPER IN ROUNDING ON PT.
--- NOTE | 2021-09-19 11:36 | NUR ---
VILLALPANDO REMOVED PER PT REQUEST.
--- NOTE | 2021-09-19 11:38 | NUR ---
AMBULATED INDEPENDENTLY TO BATHROOM.
--- NOTE | 2021-09-19 15:49 | NUR ---
FREQ ROUNDS TO ENSURE PT SAFETY.
--- NOTE | 2021-09-19 17:27 | NUR ---
SITTING UP IN BED WATCHING TV.
--- NOTE | 2021-09-19 19:30 | NUR ---
PT RESTING IN BED, NO SIGNS OF DISTRESS NOTED, RESP EVEN AND UNLABORED. PT ON 02 2L NC, SATS 100%, DENIES ANY PAIN OR NEEDS AT THIS TIME. DISCUSSED POC AND FLUID RESTRICTION, PT UPSET BUT VERBALIZED UNDERSTANDING. NOTED BP AT 1900 74/57 HR 88, RECHECKED BP; 87/69 HR 87. PT VOIDED CLEAR PALE YELLOW URINE 300CC EMPTIED. NO EDEMA. ASSESSMENT REVIEW COMPLETED, CALL LIGHT IN REACH,CONTINUE TO MONITOR.
--- NOTE | 2021-09-19 20:00 | NUR ---
BP RECHECKED 94/70 HR 80, NO SIGNS OF DISTRESS NOTED, RESP EVEN AND UNLABORED. MD CALLED AND NOTIFIED OF EARLIER BP AND CURRENT BP DUE TO SCHEDULED COREG AT 2100. ORDERS TO DC LASIX AND HOLD COREG FOR TONIGHT AND TO NOTIFY MD OF ANY CHANGES. CALL LIGHT IN REACH,CONTINUE TO MONITOR.
--- NOTE | 2021-09-19 21:29 | NUR ---
PT RESTING IN BED, NO SIGNS OF DISTRESS NOTED,RESP EVEN AND UNLABORED. PT MEDICATED PER MAR, VOICES NO NEEDS OR COMPLAINTS, CALL LIGHT IN REACH,CONTINUE TO MONITOR.
--- NOTE | 2021-09-19 23:38 | NUR ---
PT RESTING IN BED WITH EYES CLOSED, RESP EVEN AND UNLABORED. NO SIGNS OF DISTRESS NOTED,CALL LIGHT IN REACH,CONTINUE TO MONITOR.
[2021-09-20] VITALS (14 sets, daily range): BP systolic 90–110; BP diastolic 64–93
--- NOTE | 2021-09-20 04:00 | NUR ---
NO SIGNS OF DISTRESS NOTED, RESP EVEN AND UNLABORED. PT VOICES NO NEEDS OR COMPLAINTS AT THIS TIME, CALL LIGHT IN REACH,CONTINUE TO MONITOR.
[2021-09-20 06:11] LABS: HEMATOCRIT 42.5 % (39.0-50.0); HEMOGLOBIN 13.9 g/dl (14.0-18.0); IMMATURE GRANULOCYTES 0.2 % (0.0-5.0); MEAN CELL VOLUME 95.1 fL CALC (80.0-100.0); MEAN CORPUSCULAR HGB 31.1 pG CALC (26.0-32.0); MEAN CORPUSCULAR HGB CONC 32.7 g/dL CAL (32.0-36.0); NEUT# 3.62 thou/uL (1.82-7.42); RED BLOOD COUNT 4.47 mill/uL (4.70-6.10); RED CELL DISTRI WIDTH 14.7 % (11.5-15.5)
[2021-09-20 06:50] LABS: ANION GAP 8 (6-22 (CALC)); BUN 20 mg/dL (8-23); BUN/CREATININE RATIO 22 (12-20 (CALC)); CARBON DIOXIDE 30 mmol/l (22-30); CHLORIDE 101 mmol/l (95-108); CREATININE 0.9 mg/dL (0.7-1.3); GFR > 60 ML/MIN (>=60 (CALC)); GFR FOR AFR.AMER. > 60 ML/MIN (>=60 (CALC)); MAGNESIUM 1.7 mg/dL (1.6-2.3); POTASSIUM 3.8 mmol/l (3.5-5.1); SODIUM 136 mmol/l (137-146)
--- NOTE | 2021-09-20 08:16 | NUR ---
DR ZOLTAN LEMON ON PT.
[2021-09-20] MEDS ORDERED: ADLT ASA LOW81 MG PO (10:37)
[2021-09-20] MEDS ORDERED: CARVEDILOL3.125 MG PO (10:37)
[2021-09-20] MEDS ORDERED: LOSARTAN POTASS25 MG PO (10:37)
[2021-09-20] MEDS ORDERED: ATORVASTATIN CA20 MG PO (10:37)
[2021-09-20] MEDS ORDERED: LASIX 40 MG TAB40 MG PO (10:38)
--- NOTE | 2021-09-20 12:32 | NUR ---
SITTING UP IN BED HAVING LUNCH.
--- NOTE | 2021-09-20 16:10 | NUR ---
ZOLL REP CALLED ETA 35MINS.
--- NOTE | 2021-09-20 16:42 | NUR ---
zoll rep called eta 35mins.
--- NOTE | 2021-09-20 16:53 | NUR ---
meri from life vest in doing vest fitting.
--- NOTE | 2021-09-20 17:48 | NUR ---
ZOLL EDUCATION DONE. PT REQUEST TO STAY THE NIGHT. AWAITING MD RESPONSE.
--- NOTE | 2021-09-20 18:08 | NUR ---
PAOLA SHEPARD MADE AWARE OF PT REQUEST AND WILL ACCEPT PT SAYING UNTIL THE MORNING.
--- NOTE | 2021-09-20 20:00 | NUR ---
RESTING IN BED WATCHING TV. RESP NON-LABORED AT REST. USING 02 AT 2 L NC. O2 SAT 100% SLT DIMINISHED BREATH SOUNDS. SHIFT ASSESSMENT COMPLETED. VSS. DISCUSSED PLAN OF CARE. NO NEEDS IDENTIFIED AT THIS TIME. CALL CORTEZ IN REACH.
--- NOTE | 2021-09-20 22:00 | NUR ---
WATHCING TV. NO COMPLAINTS VOICED.
[2021-09-21 00:05] VITALS: BP 109/57
--- NOTE | 2021-09-21 00:05 | NUR ---
RESTING WITH EYES CLOSED. RESP NON-LABORED. VSS. ZOLL LIFEVEST IN PLACE.
--- NOTE | 2021-09-21 04:00 | NUR ---
SLEEPS SOUNDLY. RESP NON-LABORED. O2 SAT 100% ON O2 2 L NC. SR ON MONITOR.
[2021-09-21 05:00] VITALS: BP 112/91
--- NOTE | 2021-09-21 06:11 | NUR ---
NO CHANGES TO REPORT.
--- NOTE | 2021-09-21 07:30 | NUR ---
PATIENT LAYING IN BED AT THIS TIME. CYCLE TOURING GUIDE DONE AT THIS TIME SEE INTERVETIONS. PATIENT PRESENTS WITH ZOLL LIFE VEST AND INTACT AND RUNNING. PATIENT STATED THAT HE JUST GOT UP PRIOR TO THIS NURSE COMING INTO ROOM AND CHANGED THE BATTERY. PATIENT STATES HE IS COMFORTABLE WITH THE EDCUATION HE RECEIVED WHEN VEST WAS PLACE. PATIENT LUNG MENDEZ REMAIN DIMINISHED AND PATIIENT PHARMACEUTICAL PROCESS ENGINEER READING S/R WITH A HEART RATE OF 94. PATIENT IS ON 2L OF OXYGEN NASAL CANNUAL AND SPO2 CURRENTLY IS 94%. SIDERAILS ARE UP X 2 CALL LIGHT IS WIHTIN REACH. WILL CONTINUE TO MONITOR.
[2021-09-21 08:27] VITALS: BP 112/91
--- NOTE | 2021-09-21 08:57 | NUR ---
PATIENT D/C AT THIS TIME PATIENT VERBALIZED UNDERSTANDING OF DISCHARGE INSTRUCTIONS AND WAS ADVISED THAT [facility] WOULD BE CALLING TO SET UP TIME TO VISIT ON 09/22/21. PATIENT ALSO GIVEN Z0LL LIFE VEST INSTRUSTIONS AND PATIENT DID VERBALIZE AND REDEMONSTRATED UNDERSTANDING OF BATTERY CHANGING AND INSTUCTIONS. PATIENT ADVISED TO INFORM [facility] ABOUT HIS D/C INSTRUCTION. PATIENT LEFT HOSPITAL VIA CAB PAID AND APPROVED BY Marlena SINGH NURSE NUCLEAR FUELS RECLAMATION ENGINEER.
--- NOTE | 2021-09-21 09:00 | NUR ---
Discharge instructions given. Patient verbalizes understanding of same. Discharged in stable condition via Taxi to Home with *Other. All belongings sent with pt. PATIENT D/C WITH [facility] PATIENT VERBALIZED UNDERSTANDING OF D/C INSTRUCTIONS. (SEE NURSES NOTE).
== END 2021-09-21 09:00 ==
LOC: ED 05:20 → ED-I 09:25 → ED 09:28 → ICU 09:39
PROVIDERS: Emergency Medicine; Nurse Practitioner; Nurse Practitioner Family; ADMIT Internal Medicine; ATTEND Internal Medicine
DX: I11.0 Hypertensive heart disease with heart failure (principal); I50.23 Acute on chronic systolic (congestive) heart failure; J96.01 Acute respiratory failure with hypoxia; F14.10 Cocaine abuse, uncomplicated; F10.20 Alcohol dependence, uncomplicated; E83.42 Hypomagnesemia; F41.9 Anxiety disorder, unspecified; E78.5 Hyperlipidemia, unspecified; R10.9 Unspecified abdominal pain; G89.29 Other chronic pain; Z91.14 Patient's other noncompliance with medication regimen; Z87.891 Personal history of nicotine dependence; Z86.73 Personal history of transient ischemic attack (TIA), and cerebral infarction without residual deficits; Z20.822 Contact with and (suspected) exposure to COVID-19
CPT/HCPCS: J1650; J3475

== ENCOUNTER 2021-09-21 12:06 | Observation (INO) | payer MEDICARE, MEDICAID ==
[~2021-09-21] VITALS: Ht 177.8 cm; Wt 65.0 kg
[~2021-09-21 12:06] MED LIST changes: +ADLT ASA LOW81 MG PO; +ATORVASTATIN CA20 MG PO; +CARVEDILOL3.125 MG PO; +LASIX 40 MG TAB40 MG PO; +LOSARTAN POTASS25 MG PO
--- NOTE | 2021-09-21 13:00 | NUR ---
Reassessment of patient completed. No distress noted.
[2021-09-21 13:39] LABS: HEMOGLOBIN 12.7 g/dl (14.0-18.0); IMMATURE GRANULOCYTES 0.4 % (0.0-5.0); MEAN CELL VOLUME 98.3 fL CALC (80.0-100.0); MEAN CORPUSCULAR HGB 31.2 pG CALC (26.0-32.0); MEAN CORPUSCULAR HGB CONC 31.8 g/dL CAL (32.0-36.0); NEUT# 3.51 thou/uL (1.82-7.42); RED BLOOD COUNT 4.07 mill/uL (4.70-6.10); RED CELL DISTRI WIDTH 14.4 % (11.5-15.5)
[2021-09-21 13:46] LABS: ALBUMIN 3.3 g/dL (3.2-5.0); ALKALINE PHOSPHATASE 76 u/l (38-126); ANION GAP 9 (6-22 (CALC)); BILIRUBIN, TOTAL 0.6 mg/dL (0.0-1.4); BUN 22 mg/dL (8-23); BUN/CREATININE RATIO 23 (12-20 (CALC)); CARBON DIOXIDE 27 mmol/l (22-30); CHLORIDE 103 mmol/l (95-108); CREATININE 0.9 mg/dL (0.7-1.3); GFR > 60 ML/MIN (>=60 (CALC)); GFR FOR AFR.AMER. > 60 ML/MIN (>=60 (CALC)); POTASSIUM 4.2 mmol/l (3.5-5.1); SGOT/AST 25 u/l (19-48); SODIUM 136 mmol/l (137-146); TOTAL PROTEIN 6.5 g/dL (6.3-8.2)
--- NOTE | 2021-09-21 14:00 | NUR ---
Reassessment of patient completed. No distress noted.
--- NOTE | 2021-09-21 15:00 | NUR ---
Reassessment of patient completed. No distress noted.
--- NOTE | 2021-09-21 16:00 | NUR ---
Reassessment of patient completed. No distress noted.
--- NOTE | 2021-09-21 17:00 | NUR ---
Reassessment of patient completed. No distress noted.
--- NOTE | 2021-09-21 18:23 | NUR ---
REPORT CALLED TO MADHU ON MED SURG
--- NOTE | 2021-09-21 18:29 | NUR ---
RECIEVED REPORT FROM BROOKE ODELL
[2021-09-21 18:55] VITALS: BP 102/76
--- NOTE | 2021-09-21 18:55 | NUR ---
PT ARRIVD TO [facility] ROOM 278 VIA STRECTHER ACCOMPAINED BY ER STAFF. PT ASSISTED INTO BED. REPSIRATIONS EVEN AND UNLABORED ON 2L NC. PT ORIENTED TO ROOM AND CALL SYSTEM. DINNER TRAT GIVEN. ALL SAFTEY PRECAUTIONS ARE IN PLACE WITH CALL LIGHT IN REACH. WILL CONTINUE TO MONITOR
--- NOTE | 2021-09-21 19:00 | NUR ---
REPORT RECEIVED FROM DAYSHIFT NURSE VIA SBAR FORMAT; PATIENT ARRIVED FROM ER AT THIS TIME FROM ER TO ROOM 278. ARRIVED VIA STRETCHER, ACCOMPANIED BY CURTAIN CUTTER HAND. FOUND PATIENT RESTING IN BED, NO PAIN OR NEEDS REPORTED, ON 2L O2 VIA NC RESP ARE EVEN AND UNLABORED, WEARING A LIVE VEST. SAFETY MEASURES IN PLACE, WILL FOLLOW UP WITH ASSESSMENT AND MEDICATIONS PER EMAR.
--- NOTE | 2021-09-21 21:18 | NUR ---
RESTING IN BED, RESP ARE EVEN AND UNLABORED, ON 2L O2 VIA NC, LIVE VEST ON. CALL CORTEZ AT [facility], WILL FOLLOW UP CLOSELY.
[2021-09-22] VITALS: BP 101/80
--- NOTE | 2021-09-22 | NUR ---
PROVIDED FRESH WATER, NO PAIN OR NEEDS REPORTED, CALL CORTEZ AT REACH.
[2021-09-22 04:00] VITALS: BP 110/65
--- NOTE | 2021-09-22 04:00 | NUR ---
FOUND IV DISLOGED, CATHETER INTACT, NO BLEEDING. WILL START A NEW IV. NO OTHER NEEDS VOICED, CALL CORTEZ AT REACH.
--- NOTE | 2021-09-22 05:00 | NUR ---
NEW IV START 20G RFA HEP LOCK, FLUSHES WELL, PT TOLERATED ACTIVITY WELL, KATHARINE HOSE ON AND NONSKID SOCKS, RESP ARE EVEN AND UNLABORED, SAFETY MEASURES IN PLACE, WILL FOLLOW UP CLOSELY.
--- NOTE | 2021-09-22 06:55 | NUR ---
REPORT GIVEN TO DAYSHIFT NURSE VIA SBAR FORMAT, PT IS STABLE.
[2021-09-22 07:24] LABS: ALKALINE PHOSPHATASE 75 u/l (38-126); ANION GAP 10 (6-22 (CALC)); BILIRUBIN, TOTAL 0.4 mg/dL (0.0-1.4); BUN 24 mg/dL (8-23); BUN/CREATININE RATIO 28 (12-20 (CALC)); CARBON DIOXIDE 25 mmol/l (22-30); CHLORIDE 105 mmol/l (95-108); CREATININE 0.9 mg/dL (0.7-1.3); GFR > 60 ML/MIN (>=60 (CALC)); GFR FOR AFR.AMER. > 60 ML/MIN (>=60 (CALC)); POTASSIUM 4.2 mmol/l (3.5-5.1); SGOT/AST 24 u/l (19-48); SODIUM 137 mmol/l (137-146); TOTAL PROTEIN 5.8 g/dL (6.3-8.2)
[2021-09-22 07:30] VITALS: BP 113/84
--- NOTE | 2021-09-22 07:30 | NUR ---
PATIENT LAYING IN BED AT THIS TIME WITH ZOLL LIFE VEST ON AND INTACT. PATIENT DENIES ANY NEEDS AND OR PAIN AT THIS TIME. TELE MONITOR IS ON AND BEING MONITORED BY ED. HUMAN RESOURCE MANAGEMENT INSTRUCTOR DONE SEE INTERVENTIONS AT THIS TIME. SIDERAILS ARE UP WILL CONTINUE TO MONITOR
--- NOTE | 2021-09-22 10:00 | NUR ---
PATIENT TOOK TELE MONITORED OFF AT THIS TIME AND IS REFUSING TO PUT IT BACK ON. PATIENT STATES IT IS NOT NEEDED HE IS GOING HOME. THIS NURSE INFORMED PATIENT THAT HIS DISCHARGE WOULD NOT BE FOR A FEW HOURS AND PATIENT STATED "NO I DONT WANT THIS BACK ON". THIS NURSE INFORM ED STAFF THAT PATIENT IS REFUSING TO LEAVE MONITOR ON AT THIS TIME AND PAOLA DIAZ WAS ALSO INFORMED.
[2021-09-22 10:39] VITALS: BP 115/88
--- NOTE | 2021-09-22 11:53 | NUR ---
Discharge instructions given. Patient verbalizes understanding of same. Discharged in stable condition via Wheelchair to Home with *Other. All belongings sent with pt. PATIENT SENT HOME VIA CAB AT THIS TIME. O2 TANK FULL AND ON 2 LITERS AND PATINET TOLD TO CALL NUMBER ON CARD TO GET CONSENTRATOR TO HOME TODAY. PATIENT VERBALIZES UNDERSTANDING. 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 APPROVED CAB.
== END 2021-09-22 11:55 ==
LOC: ED 12:06 → ED-I 13:50 → ED 14:07 → MS2 14:08
PROVIDERS: ADMIT Internal Medicine; ATTEND Internal Medicine
DX: I11.0 Hypertensive heart disease with heart failure (principal); I50.22 Chronic systolic (congestive) heart failure; I42.9 Cardiomyopathy, unspecified; F41.9 Anxiety disorder, unspecified; F10.10 Alcohol abuse, uncomplicated; F14.10 Cocaine abuse, uncomplicated; E78.5 Hyperlipidemia, unspecified; F17.200 Nicotine dependence, unspecified, uncomplicated; Z59.1 Inadequate housing; Z99.81 Dependence on supplemental oxygen; Z86.73 Personal history of transient ischemic attack (TIA), and cerebral infarction without residual deficits

== ENCOUNTER 2021-10-12 11:39 | Observation (INO) | payer MEDICARE, MEDICAID ==
[~2021-10-12] VITALS: Ht 177.8 cm; Wt 67.0 kg
--- NOTE | 2021-10-12 11:39 | NUR ---
PATIENT TO ROOM VIA EMS AND PHYSICIAN AT BEDSIDE FOR EVAL
[2021-10-12 12:20] LABS: HEMATOCRIT 37.5 % (39.0-50.0); HEMOGLOBIN 12.1 g/dl (14.0-18.0); IMMATURE GRANULOCYTES 0.3 % (0.0-5.0); MEAN CELL VOLUME 95.7 fL CALC (80.0-100.0); MEAN CORPUSCULAR HGB 30.9 pG CALC (26.0-32.0); MEAN CORPUSCULAR HGB CONC 32.3 g/dL CAL (32.0-36.0); NEUT# 4.85 thou/uL (1.82-7.42); RED BLOOD COUNT 3.92 mill/uL (4.70-6.10); RED CELL DISTRI WIDTH 14.5 % (11.5-15.5)
[2021-10-12 12:30] LABS: ALBUMIN 3.6 g/dL (3.2-5.0); ALKALINE PHOSPHATASE 74 u/l (38-126); ANION GAP 12 (6-22 (CALC)); BUN 26 mg/dL (8-23); BUN/CREATININE RATIO 23 (12-20 (CALC)); CARBON DIOXIDE 23 mmol/l (22-30); CHLORIDE 108 mmol/l (95-108); CREATININE 1.2 mg/dL (0.7-1.3); GFR > 60 ML/MIN (>=60 (CALC)); GFR FOR AFR.AMER. > 60 ML/MIN (>=60 (CALC)); POTASSIUM 4.1 mmol/l (3.5-5.1); SGOT/AST 30 u/l (19-48); SODIUM 139 mmol/l (137-146); TOTAL PROTEIN 6.8 g/dL (6.3-8.2)
--- NOTE | 2021-10-12 12:40 | NUR ---
Reassessment of patient completed. No distress noted.
[2021-10-12 12:43] LABS: BILIRUBIN, TOTAL 0.7 mg/dL (0.0-1.4)
--- NOTE | 2021-10-12 13:40 | NUR ---
Reassessment of patient completed. No distress noted.
--- NOTE | 2021-10-12 14:14 | NUR ---
Reassessment of patient completed. No distress noted.
--- NOTE | 2021-10-12 17:26 | NUR ---
REPORT CALLED TO TARA COX.
[2021-10-12 17:50] VITALS: BP 115/85
[2021-10-12 18:10] VITALS: BP 112/81
--- NOTE | 2021-10-12 19:53 | NUR ---
1899-Report received from ongoing nurse via sbar format. Found patient resting in bed, alert and oriented x4, c/o lower back pain. No pain med order in [place], will contact MD. 1929-Breanna from [employer] in patient's room at this time checking live vest equipment. 1954-Breanna from [employer] states life vest functioning properly, but hot spot is not sending the data, replacing the hot spot at this time per Breanna, from [employer]. patient requesting a snack, states is hungry. No s/s of distress noted at this time. Breanna from [employer] still in patient's room.
[2021-10-12 20:00] VITALS: BP 115/88
--- NOTE | 2021-10-13 00:10 | NUR ---
PATIEN IS AWAKE, DENIES PAIN REQUESTING MORE FOOD, HAD A TV DINNER LAST NIGHT FOR SNACK AND PUDDING, REQUESTING MORE, PROVIDED AN ENSURE, OUT OF TV DINNER, NO SANDWICHES AVAILABLE. PROVIDED FRESH WATER AND JUICE WELL.
[2021-10-13 00:32] VITALS: BP 97/73
--- NOTE | 2021-10-13 02:20 | NUR ---
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 SEE FOR IN CHART. [id number] SECURITY BAG NUMBER.
[2021-10-13 04:00] VITALS: BP 109/79
--- NOTE | 2021-10-13 04:32 | NUR ---
PATIENT IS RESTING IN BED, DOZING ON AND OFF, REQUESTING MORE FOOD, NO PAIN OR NEED REPORTED, RESP ARE EVEN AND UNLABORED AT THIS TIME, WILL FOLLOW UP WITH HOURLY ROUNDINGS, CALL [facility]TE[facility] AT REACH. VSS, TELE SR PER ER TELEMETRY.
[2021-10-13 05:57] LABS: ANION GAP 13 (6-22 (CALC)); BUN 26 mg/dL (8-23); BUN/CREATININE RATIO 25 (12-20 (CALC)); CARBON DIOXIDE 22 mmol/l (22-30); CHLORIDE 106 mmol/l (95-108); GFR > 60 ML/MIN (>=60 (CALC)); GFR FOR AFR.AMER. > 60 ML/MIN (>=60 (CALC)); MAGNESIUM 1.6 mg/dL (1.6-2.3); POTASSIUM 4.1 mmol/l (3.5-5.1); SODIUM 138 mmol/l (137-146)
[2021-10-13 05:59] LABS: HEMATOCRIT 36.6 % (39.0-50.0); HEMOGLOBIN 11.9 g/dl (14.0-18.0); MEAN CELL VOLUME 95.8 fL CALC (80.0-100.0); MEAN CORPUSCULAR HGB 31.2 pG CALC (26.0-32.0); MEAN CORPUSCULAR HGB CONC 32.5 g/dL CAL (32.0-36.0); RED BLOOD COUNT 3.82 mill/uL (4.70-6.10); RED CELL DISTRI WIDTH 14.4 % (11.5-15.5)
--- NOTE | 2021-10-13 06:31 | NUR ---
SITTING UP IN BED, SOB ON EXERTION, NO PAIN REPORTED AT THIS TIME, ASKING FOR COFFEE, EDUCATED ABOUT DIET RESTRICTION AND THAT WILL GET COFFEE WITH BREAKFAST. PATIENT NEEDS REINFORCEMENT. PATIENT ASKED FOR DRINKS AND FOOD ALL NIGHT.
[2021-10-13 11:04] VITALS: BP 107/87
== END 2021-10-13 13:30 ==
LOC: ED 11:39 → ED-I 13:07 → ED 13:21 → MS2 13:22
PROVIDERS: Family Medicine; ADMIT Hospitalist; ATTEND Hospitalist
DX: I11.0 Hypertensive heart disease with heart failure (principal); I50.23 Acute on chronic systolic (congestive) heart failure; J96.11 Chronic respiratory failure with hypoxia; E78.5 Hyperlipidemia, unspecified; F10.10 Alcohol abuse, uncomplicated; F41.9 Anxiety disorder, unspecified; F14.10 Cocaine abuse, uncomplicated; F17.200 Nicotine dependence, unspecified, uncomplicated; Z99.81 Dependence on supplemental oxygen; Z86.73 Personal history of transient ischemic attack (TIA), and cerebral infarction without residual deficits; Z20.822 Contact with and (suspected) exposure to COVID-19
CPT/HCPCS: G0378; J1650

== ENCOUNTER 2021-11-12 13:20 | Observation (INO) | payer MEDICARE, MEDICAID ==
[~2021-11-12] VITALS: Ht 177.8 cm; Wt 75.0 kg
[2021-11-12] VITALS (40 sets, daily range): BP systolic 96–161; BP diastolic 67–141
[2021-11-12] MEDS ORDERED: COZAAR25 MG PO (14:11)
[2021-11-12 14:47] LABS: HEMATOCRIT 45.4 % (39.0-50.0); HEMOGLOBIN 14.2 g/dl (14.0-18.0); IMMATURE GRANULOCYTES 0.3 % (0.0-5.0); MEAN CELL VOLUME 98.3 fL CALC (80.0-100.0); MEAN CORPUSCULAR HGB 30.7 pG CALC (26.0-32.0); MEAN CORPUSCULAR HGB CONC 31.3 g/dL CAL (32.0-36.0); NEUT# 5.85 thou/uL (1.82-7.42); RED BLOOD COUNT 4.62 mill/uL (4.70-6.10); RED CELL DISTRI WIDTH 15.4 % (11.5-15.5)
[2021-11-12 14:59] LABS: ALBUMIN 3.4 g/dL (3.2-5.0); ALKALINE PHOSPHATASE 101 u/l (38-126); ANION GAP 14 (6-22 (CALC)); BUN 23 mg/dL (8-23); BUN/CREATININE RATIO 29 (12-20 (CALC)); CARBON DIOXIDE 25 mmol/l (22-30); CHLORIDE 102 mmol/l (95-108); CREATININE 0.8 mg/dL (0.7-1.3); GFR > 60 ML/MIN (>=60 (CALC)); GFR FOR AFR.AMER. > 60 ML/MIN (>=60 (CALC)); POTASSIUM 5.1 mmol/l (3.5-5.1); SGOT/AST 37 u/l (19-48); SODIUM 136 mmol/l (137-146); TOTAL PROTEIN 6.5 g/dL (6.3-8.2)
[2021-11-12 15:00] LABS: BILIRUBIN, TOTAL 0.5 mg/dL (0.0-1.4)
[2021-11-12 16:28] LABS: URINE BILIRUBIN - DIPSTICK NEGATIVE (NEGATIVE); URINE BLOOD DIPSTICK NEGATIVE (NEGATIVE); URINE COLOR YELLOW; URINE GLUCOSE - DIPSTICK NEGATIVE (NEGATIVE); URINE KETONE NEGATIVE (NEGATIVE); URINE LEUK ESTERASE NEGATIVE (NEGATIVE); URINE PH 6.5 (4.5-8.0); URINE PROTEIN - DIPSTICK 100 mg/dL (NEG-TRACE); URINE SPECIFIC GRAVITY 1.025; URINE UROBILINOGEN - DIPSTICK 0.2 E.U./dL (0.2)
[2021-11-12 16:30] LABS: URINE NITRITE - DIPSTICK NEGATIVE (Negative)
[2021-11-12 16:31] LABS: URINE RBC 0-2 RBC/hpf (0-5); URINE WBC 0-2 WBC/hpf (0-5)
[2021-11-13] VITALS (87 sets, daily range): BP systolic 93–140; BP diastolic 23–116
[2021-11-13 07:07] LABS: MAGNESIUM 1.5 mg/dL (1.6-2.3)
[2021-11-14] VITALS (74 sets, daily range): BP systolic 71–130; BP diastolic 46–100
[2021-11-14 06:40] LABS: ANION GAP 12 (6-22 (CALC)); BUN 25 mg/dL (8-23); BUN/CREATININE RATIO 31 (12-20 (CALC)); CARBON DIOXIDE 27 mmol/l (22-30); CHLORIDE 100 mmol/l (95-108); CREATININE 0.8 mg/dL (0.7-1.3); GFR > 60 ML/MIN (>=60 (CALC)); GFR FOR AFR.AMER. > 60 ML/MIN (>=60 (CALC)); MAGNESIUM 1.7 mg/dL (1.6-2.3); POTASSIUM 4.5 mmol/l (3.5-5.1); SODIUM 135 mmol/l (137-146)
[2021-11-15] VITALS (20 sets, daily range): BP systolic 105–129; BP diastolic 69–104
[2021-11-15 06:29] LABS: HEMOGLOBIN 13.3 g/dl (14.0-18.0); MEAN CELL VOLUME 96.6 fL CALC (80.0-100.0); MEAN CORPUSCULAR HGB 30.6 pG CALC (26.0-32.0); MEAN CORPUSCULAR HGB CONC 31.7 g/dL CAL (32.0-36.0); RED BLOOD COUNT 4.35 mill/uL (4.70-6.10)
[2021-11-15 06:51] LABS: ANION GAP 10 (6-22 (CALC)); BUN 29 mg/dL (8-23); BUN/CREATININE RATIO 36 (12-20 (CALC)); CARBON DIOXIDE 29 mmol/l (22-30); CHLORIDE 99 mmol/l (95-108); CREATININE 0.8 mg/dL (0.7-1.3); GFR > 60 ML/MIN (>=60 (CALC)); GFR FOR AFR.AMER. > 60 ML/MIN (>=60 (CALC)); POTASSIUM 4.5 mmol/l (3.5-5.1); SODIUM 133 mmol/l (137-146)
[2021-11-16] VITALS (23 sets, daily range): BP systolic 96–139; BP diastolic 70–103
[2021-11-16 06:56] LABS: HEMATOCRIT 41.5 % (39.0-50.0); HEMOGLOBIN 13.3 g/dl (14.0-18.0); MEAN CELL VOLUME 95.6 fL CALC (80.0-100.0); MEAN CORPUSCULAR HGB 30.6 pG CALC (26.0-32.0); RED BLOOD COUNT 4.34 mill/uL (4.70-6.10); RED CELL DISTRI WIDTH 14.8 % (11.5-15.5)
[2021-11-16 07:15] LABS: ANION GAP 13 (6-22 (CALC)); BUN 28 mg/dL (8-23); BUN/CREATININE RATIO 38 (12-20 (CALC)); CARBON DIOXIDE 27 mmol/l (22-30); CHLORIDE 99 mmol/l (95-108); CREATININE 0.7 mg/dL (0.7-1.3); GFR > 60 ML/MIN (>=60 (CALC)); GFR FOR AFR.AMER. > 60 ML/MIN (>=60 (CALC)); MAGNESIUM 1.7 mg/dL (1.6-2.3); SODIUM 134 mmol/l (137-146)
[2021-11-17] VITALS (19 sets, daily range): BP systolic 72–129; BP diastolic 55–110
[2021-11-17 05:31] LABS: HEMATOCRIT 43.6 % (39.0-50.0); HEMOGLOBIN 13.7 g/dl (14.0-18.0); MEAN CELL VOLUME 97.1 fL CALC (80.0-100.0); MEAN CORPUSCULAR HGB 30.5 pG CALC (26.0-32.0); MEAN CORPUSCULAR HGB CONC 31.4 g/dL CAL (32.0-36.0); RED BLOOD COUNT 4.49 mill/uL (4.70-6.10)
[2021-11-17 06:12] LABS: ANION GAP 14 (6-22 (CALC)); BUN 32 mg/dL (8-23); BUN/CREATININE RATIO 38 (12-20 (CALC)); CARBON DIOXIDE 27 mmol/l (22-30); CHLORIDE 100 mmol/l (95-108); CREATININE 0.8 mg/dL (0.7-1.3); GFR > 60 ML/MIN (>=60 (CALC)); GFR FOR AFR.AMER. > 60 ML/MIN (>=60 (CALC)); MAGNESIUM 1.9 mg/dL (1.6-2.3); SODIUM 135 mmol/l (137-146)
[2021-11-17 06:14] LABS: POTASSIUM 5.5 mmol/l (3.5-5.1)
[2021-11-18] VITALS (9 sets, daily range): BP systolic 102–132; BP diastolic 75–108
[2021-11-19 00:21] VITALS: BP 101/73
[2021-11-19 05:35] LABS: HEMATOCRIT 43.9 % (39.0-50.0); HEMOGLOBIN 13.8 g/dl (14.0-18.0); IMMATURE GRANULOCYTES 0.4 % (0.0-5.0); MEAN CELL VOLUME 96.5 fL CALC (80.0-100.0); MEAN CORPUSCULAR HGB 30.3 pG CALC (26.0-32.0); MEAN CORPUSCULAR HGB CONC 31.4 g/dL CAL (32.0-36.0); NEUT# 5.31 thou/uL (1.82-7.42); RED BLOOD COUNT 4.55 mill/uL (4.70-6.10)
[2021-11-19 05:47] VITALS: BP 132/94
[2021-11-19 05:49] LABS: ALKALINE PHOSPHATASE 79 u/l (38-126); ANION GAP 14 (6-22 (CALC)); BUN 31 mg/dL (8-23); BUN/CREATININE RATIO 34 (12-20 (CALC)); CARBON DIOXIDE 28 mmol/l (22-30); CHLORIDE 98 mmol/l (95-108); CREATININE 0.9 mg/dL (0.7-1.3); GFR > 60 ML/MIN (>=60 (CALC)); GFR FOR AFR.AMER. > 60 ML/MIN (>=60 (CALC)); POTASSIUM 4.8 mmol/l (3.5-5.1); SGOT/AST 32 u/l (19-48); SODIUM 135 mmol/l (137-146); TOTAL PROTEIN 5.8 g/dL (6.3-8.2)
[2021-11-19 05:52] LABS: BILIRUBIN, TOTAL 0.8 mg/dL (0.0-1.4)
[2021-11-19 06:34] VITALS: BP 114/91
[2021-11-19 11:39] VITALS: BP 109/87
== END 2021-11-19 14:38 | disposition home health service (06) ==
LOC: ED 13:20 → ED-I 14:56 → ED 14:56 → ED-I 15:16 → ED 15:42 → ICU 15:43 → MS2 11-18 09:40
PROVIDERS: Family Medicine; Hospitalist; Internal Medicine; ADMIT Internal Medicine; ATTEND Internal Medicine
DX: I11.0 Hypertensive heart disease with heart failure (principal); I50.23 Acute on chronic systolic (congestive) heart failure; R45.851 Suicidal ideations; J44.1 Chronic obstructive pulmonary disease with (acute) exacerbation; F10.10 Alcohol abuse, uncomplicated; F32.A Depression, unspecified; F41.9 Anxiety disorder, unspecified; F14.10 Cocaine abuse, uncomplicated; E78.5 Hyperlipidemia, unspecified; F17.200 Nicotine dependence, unspecified, uncomplicated; Z60.2 Problems related to living alone; Z86.73 Personal history of transient ischemic attack (TIA), and cerebral infarction without residual deficits; Z20.822 Contact with and (suspected) exposure to COVID-19
CPT/HCPCS: G0378; J1650; J3475

== ENCOUNTER 2021-11-24 18:56 | Emergency (ER) | payer MEDICARE, MEDICAID ==
[~2021-11-24] VITALS: Ht 177.8 cm; Wt 68.0 kg
[2021-11-24] VITALS (10 sets, daily range): BP systolic 114–153; BP diastolic 90–126
[~2021-11-24 18:56] MED LIST changes: +COZAAR25 MG PO
[2021-11-24 19:56] LABS: HEMATOCRIT 42.4 % (39.0-50.0); HEMOGLOBIN 13.2 g/dl (14.0-18.0); IMMATURE GRANULOCYTES 0.3 % (0.0-5.0); MEAN CELL VOLUME 97.9 fL CALC (80.0-100.0); MEAN CORPUSCULAR HGB 30.5 pG CALC (26.0-32.0); MEAN CORPUSCULAR HGB CONC 31.1 g/dL CAL (32.0-36.0); NEUT# 5.1 thou/uL (1.82-7.42); RED BLOOD COUNT 4.33 mill/uL (4.70-6.10); RED CELL DISTRI WIDTH 15.6 % (11.5-15.5)
[2021-11-24 20:07] LABS: ALBUMIN 3.4 g/dL (3.2-5.0); ALKALINE PHOSPHATASE 93 u/l (38-126); ANION GAP 15 (6-22 (CALC)); BILIRUBIN, TOTAL 1.1 mg/dL (0.0-1.4); BUN 27 mg/dL (8-23); BUN/CREATININE RATIO 30 (12-20 (CALC)); CARBON DIOXIDE 27 mmol/l (22-30); CHLORIDE 103 mmol/l (95-108); CREATININE 0.9 mg/dL (0.7-1.3); GFR > 60 ML/MIN (>=60 (CALC)); GFR FOR AFR.AMER. > 60 ML/MIN (>=60 (CALC)); POTASSIUM 4.5 mmol/l (3.5-5.1); SGOT/AST 38 u/l (19-48); SODIUM 140 mmol/l (137-146); TOTAL PROTEIN 6.3 g/dL (6.3-8.2)
[2021-11-24 20:19] LABS: MYOGLOBIN 37 ng/mL (0 - 121)
[2021-11-24 20:35] LABS: URINE BLOOD DIPSTICK SMALL (NEGATIVE); URINE COLOR YELLOW; URINE GLUCOSE - DIPSTICK NEGATIVE (NEGATIVE); URINE KETONE NEGATIVE (NEGATIVE); URINE LEUK ESTERASE NEGATIVE (NEGATIVE); URINE PROTEIN - DIPSTICK >=300 mg/dL (NEG-TRACE); URINE SPECIFIC GRAVITY >=1.030
[2021-11-24 20:37] LABS: URINE BILIRUBIN - DIPSTICK SMALL (NEGATIVE); URINE NITRITE - DIPSTICK NEGATIVE (Negative)
[2021-11-24 20:41] LABS: URINE RBC 0-2 RBC/hpf (0-5)
[2021-11-24 20:42] LABS: URINE MUCUS RARE hpf (NONE-FEW)
[2021-11-25] VITALS (22 sets, daily range): BP systolic 87–247; BP diastolic 59–219
[2021-11-25 00:37] LABS: AMYLASE 86 u/l (30-110); LIPASE 29 u/l (23-300)
[2021-11-25 00:45] LABS: INTERNATIONAL NORMALIZED RATIO 1.4 RATIO (0.7-1.3); PROTHROMBIN TIME 14.8 SECONDS (9.0-12.5)
== END 2021-11-25 02:25 | disposition short-term general hospital (02) ==
LOC: ED 18:56 → ED-I 19:46 → ED 22:54
PROVIDERS: Emergency Medicine
PROC: 5A12012 Performance of Cardiac Output, Single, Manual (ICD-10-PCS; principal; 2021-11-24)
PROC: 0BH17EZ Insertion of Endotracheal Airway into Trachea, Via Natural or Artificial Opening (ICD-10-PCS; 2021-11-24)
PROC: 5A1935Z Respiratory Ventilation, Less than 24 Consecutive Hours (ICD-10-PCS; 2021-11-24)
PROC: 0T9B70Z Drainage of Bladder with Drainage Device, Via Natural or Artificial Opening (ICD-10-PCS; 2021-11-25)
DX: J18.9 Pneumonia, unspecified organism (principal); J44.0 Chronic obstructive pulmonary disease with (acute) lower respiratory infection; I63.9 Cerebral infarction, unspecified; I46.9 Cardiac arrest, cause unspecified; I11.0 Hypertensive heart disease with heart failure; I50.22 Chronic systolic (congestive) heart failure; I42.9 Cardiomyopathy, unspecified; F10.10 Alcohol abuse, uncomplicated; F14.10 Cocaine abuse, uncomplicated; E78.5 Hyperlipidemia, unspecified; F41.9 Anxiety disorder, unspecified; Z86.73 Personal history of transient ischemic attack (TIA), and cerebral infarction without residual deficits; Z20.822 Contact with and (suspected) exposure to COVID-19

== ENCOUNTER 2021-12-18 20:19 | Emergency (ER) | payer MEDICARE, MEDICAID ==
[~2021-12-18] VITALS: Ht 177.8 cm; Wt 61.0 kg
[2021-12-18] VITALS (14 sets, daily range): BP systolic 86–125; BP diastolic 62–95
[2021-12-18 20:53] LABS: HEMATOCRIT 37.8 % (39.0-50.0); HEMOGLOBIN 11.8 g/dl (14.0-18.0); IMMATURE GRANULOCYTES 0.6 % (0.0-5.0); MEAN CELL VOLUME 97.4 fL CALC (80.0-100.0); MEAN CORPUSCULAR HGB 30.4 pG CALC (26.0-32.0); MEAN CORPUSCULAR HGB CONC 31.2 g/dL CAL (32.0-36.0); NEUT# 3.29 thou/uL (1.82-7.42); RED BLOOD COUNT 3.88 mill/uL (4.70-6.10); RED CELL DISTRI WIDTH 15.4 % (11.5-15.5)
[2021-12-18] MEDS ORDERED: NITROGLYCERIN0.4 MG (20:57)
[2021-12-18 21:06] LABS: ALKALINE PHOSPHATASE 101 u/l (38-126); BILIRUBIN, TOTAL 0.8 mg/dL (0.0-1.4); BUN 37 mg/dL (8-23); BUN/CREATININE RATIO 34 (12-20 (CALC)); CARBON DIOXIDE 25 mmol/l (22-30); CHLORIDE 97 mmol/l (95-108); CREATININE 1.1 mg/dL (0.7-1.3); ETHYL ALCOHOL 0 mg/dl (0-30); GFR > 60 ML/MIN (>=60 (CALC)); GFR FOR AFR.AMER. > 60 ML/MIN (>=60 (CALC)); LIPASE 57 u/l (23-300); POTASSIUM 4.5 mmol/l (3.5-5.1); SGOT/AST 63 u/l (19-48)
[2021-12-18 21:15] LABS: ACT PARTIAL THROMBO TIME 23.4 SECONDS (20.0-32.5); INTERNATIONAL NORMALIZED RATIO 1.2 RATIO (0.7-1.3); PROTHROMBIN TIME 12.4 SECONDS (9.0-12.5)
[2021-12-18 21:16] LABS: ALBUMIN 4.1 g/dL (3.2-5.0); ANION GAP 14 (6-22 (CALC)); SODIUM 131 mmol/l (137-146); TOTAL PROTEIN 7.7 g/dL (6.3-8.2)
[2021-12-18 21:22] LABS: URINE BILIRUBIN - DIPSTICK NEGATIVE (NEGATIVE); URINE BLOOD DIPSTICK NEGATIVE (NEGATIVE); URINE COLOR YELLOW; URINE GLUCOSE - DIPSTICK NEGATIVE (NEGATIVE); URINE KETONE NEGATIVE (NEGATIVE); URINE LEUK ESTERASE NEGATIVE (NEGATIVE); URINE PROTEIN - DIPSTICK 30 mg/dL (NEG-TRACE); URINE SPECIFIC GRAVITY 1.025
[2021-12-18 21:23] LABS: URINE NITRITE - DIPSTICK NEGATIVE (Negative); URINE RBC 0-2 RBC/hpf (0-5); URINE WBC 0-2 WBC/hpf (0-5)
== END 2021-12-18 23:30 | disposition short-term general hospital (02) ==
LOC: ED 20:19
DX: R07.9 Chest pain, unspecified (principal); I50.9 Heart failure, unspecified; I25.10 Atherosclerotic heart disease of native coronary artery without angina pectoris; J44.9 Chronic obstructive pulmonary disease, unspecified; F14.10 Cocaine abuse, uncomplicated; Z87.01 Personal history of pneumonia (recurrent); Z86.73 Personal history of transient ischemic attack (TIA), and cerebral infarction without residual deficits; Z86.74 Personal history of sudden cardiac arrest

== ENCOUNTER 2022-03-03 15:28 | Emergency (ER) | payer MEDICARE, MEDICAID ==
[~2022-03-03] VITALS: Ht 177.8 cm; Wt 65.0 kg
[~2022-03-03 15:28] MED LIST changes: +NITROGLYCERIN0.4 MG
[2022-03-03 15:45] LABS: HEMOGLOBIN 13.6 g/dl (14.0-18.0); IMMATURE GRANULOCYTES 0.3 % (0.0-5.0); MEAN CELL VOLUME 97.1 fL CALC (80.0-100.0); MEAN CORPUSCULAR HGB 30.1 pG CALC (26.0-32.0); NEUT# 6.07 thou/uL (1.82-7.42); RED BLOOD COUNT 4.52 mill/uL (4.70-6.10)
[2022-03-03 15:46] LABS: HEMATOCRIT 43.9 % (39.0-50.0)
[2022-03-03 16:03] LABS: ALBUMIN 3.3 g/dL (3.2-5.0); ALKALINE PHOSPHATASE 135 u/l (38-126); ANION GAP 17 (6-22 (CALC)); BILIRUBIN, TOTAL 1.1 mg/dL (0.0-1.4); BUN 40 mg/dL (8-23); BUN/CREATININE RATIO 37 (12-20 (CALC)); CARBON DIOXIDE 18 mmol/l (22-30); CHLORIDE 106 mmol/l (95-108); CREATININE 1.1 mg/dL (0.7-1.3); GFR FOR AFR.AMER. > 60 ML/MIN (>=60 (CALC)); GFR OTHER RACES > 60 ML/MIN (>=60 (CALC)); POTASSIUM 3.5 mmol/l (3.5-5.1); SGOT/AST 38 u/l (19-48); SODIUM 137 mmol/l (137-146); TOTAL PROTEIN 6.1 g/dL (6.3-8.2)
[2022-03-03 20:06] VITALS: BP 126/92
== END 2022-03-03 20:07 | disposition short-term general hospital (02) ==
LOC: ED 15:28
PROVIDERS: Family Medicine
DX: I50.23 Acute on chronic systolic (congestive) heart failure (principal); J44.9 Chronic obstructive pulmonary disease, unspecified; T50.916A Underdosing of multiple unspecified drugs, medicaments and biological substances, initial encounter; Z91.128 Patient's intentional underdosing of medication regimen for other reason; Z86.73 Personal history of transient ischemic attack (TIA), and cerebral infarction without residual deficits; Z86.74 Personal history of sudden cardiac arrest; Z20.822 Contact with and (suspected) exposure to COVID-19